=== PATIENT | female | born 1975 | race African-American/Black ===

== ENCOUNTER 2016-11-08 07:20 | Emergency (ER) | payer SELFPAY ==
[2016-11-08 07:37] VITALS: BP 155/74
--- NOTE | 2016-11-08 09:03 | RAD ---
Indication: Right knee pain. 4 views of the right knee demonstrates no fracture. There is a joint effusion noted. No other bone or joint abnormality is noted. IMPRESSION: Joint effusion without definite evidence of fracture.
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
== END 2016-11-08 09:11 | disposition home or self-care (01) ==
LOC: ED 07:20
DX: M25.561 Pain in right knee (principal); M25.461 Effusion, right knee; I10 Essential (primary) hypertension; F17.210 Nicotine dependence, cigarettes, uncomplicated
CPT/HCPCS: 99282

== ENCOUNTER 2016-11-22 10:08 | Emergency (ER) | payer MEDICAID ==
[2016-11-22] MEDS ORDERED: HYDROcodone/ACETAMIN 5-325 MG* 1 TAB PO ONE (12:06)
--- NOTE | 2016-11-22 12:15 | ED ---
Throat Pain/Nasal Congestion - HPI Summary HPI Summary: 41 female presents to ED with complaints of dental pain on right lower side that began a few days ago and has seemed to be worsening. Patient states she also now feels a small bump. Admits to cavities and fractured teeth. Thinks it is infected. Has been taking ibuprofen, tylenol and ambicil without relief. Last dose of tylenol was this morning around 6am. Denies any obvious swelling, discharge, redness, fever/chills or difficulty swallowing/breathing. No other complaints. No PMHx. States it is causing her to get a headache. - History of Current Complaint Chief Complaint: EDDentalPain Time Seen by Provider: 11/22/16 10:32 Hx Obtained From: Patient Onset/Duration: Sudden Onset, Lasting Days, Still Present, Worse Since Severity: Moderate Cough: None - Allergies/Home Medications Allergies/Adverse Reactions: Allergies Allergy/AdvReac Type Severity Reaction Status Date / Time No Known Allergies Allergy Verified 07/14/13 06:57 PMH/Surg Hx/FS Hx/Imm Hx Endocrine/Hematology History: Denies: Hx Diabetes Cardiovascular History: Reports: Hx Hypertension Denies: Hx Congestive Heart Failure Respiratory History: Denies: Hx Asthma History: Denies: Hx Renal Disease Neurological History: Denies: Other Neuro Impairments/Disorders - Immunization History Date of Tetanus Vaccine: unnknown Date of Influenza Vaccine: none Infectious Disease History: Yes Infectious Disease History: Denies: Traveled Outside the [place] in Last 30 Days - Family History Known Family History: Positive: None Negative: Cardiac Disease, Diabetes - Social History Alcohol Use: Occasionally Hx Substance Use: No Substance Use Type: Reports: None Hx Tobacco Use: No Smoking Status (MU): Light Every Day Tobacco Smoker Review of Systems Constitutional: Negative Positive: Dental Pain Cardiovascular: Negative Respiratory: Negative Positive: Headache All Other Systems Reviewed And Are Negative: Yes Physical Exam Triage Information Reviewed: Yes Vital Signs On Initial Exam: Initial Vitals Temp Pulse Resp BP Pulse Ox 96.9 F 88 16 177/100 99 11/22/16 10:10 11/22/16 10:10 11/22/16 10:10 11/22/16 10:10 11/22/16 10:10 Vital Signs Reviewed: Yes Appearance: Positive: Well-Appearing, No Pain Distress, Well-Nourished Skin: Positive: Warm, Skin Color Reflects Adequate Perfusion, Dry. Negative: Cold, Cyanosis @, Jaundiced, Pale, Erythema @ Head/Face: Positive: Normal Head/Face Inspection Eyes: Positive: Conjunctiva Clear ENT: Positive: Hearing grossly normal, Pharynx normal, TMs normal, Other - airway patent, uvula midline, no concern for peritonsillar abscess. Negative: Pharyngeal erythema, Nasal congestion, Nasal drainage, Tonsillar swelling, Tonsillar exudate, Trismus, Muffled/hoarse voice Dental: Positive: Gross Decay/Caries @, Dental Fracture @, Abscess @ - small blueberry sized nodule felt lower right mandible/jaw line., Other - no ludwigs angina. Negative: Cervical Lymphadenopathy, Bleeding - no discharg Neck: Positive: Supple, Nontender, No Lymphadenopathy Respiratory/Lung Sounds: Positive: Clear to Auscultation, Breath Sounds Present. Negative: Rales, Rhonchi, Wheezes Cardiovascular: Positive: Normal, RRR, Pulses are Symmetrical in both Upper and Lower Extremities. Negative: Murmur, Rub Musculoskeletal: Positive: Normal, Strength/ROM Intact Neurological: Positive: Normal, Sensory/Motor Intact, Alert, Oriented to Person Place, Time Psychiatric: Positive: Affect/Mood Appropriate Diagnostics - Vital Signs Vital Signs Temp Pulse Resp BP Pulse Ox 11/22/16 10:10 96.9 F 88 16 177/100 99 - Laboratory Lab Statement: Any lab studies that have been ordered have been reviewed, and results considered in the medical decision making process. EENT Course/Dx - Course Course Of Treatment: appears to be suffering from dental infection/abscess. given pain management while in ED. normal vitals. patent airway and normal PE findings. no concern for other emergent etiology at this time. small beginning of abscess possible however not drainable at this time. Follow up with dentist, given list. aware of worsening signs and symptoms to watch out for. antibiotics and pain management along with ambicil OR ibuprofen. ice, oragel and increase fluids. Istop Reference #: [id number] - Differential Diagnoses Differential Diagnoses: Dental Abscess, Dental Caries, Fractured Tooth, Pharyngitis - Diagnoses Provider Diagnoses: Dental abscess, Pain, dental Discharge - Discharge Plan Condition: Stable Disposition: HOME Prescriptions: Amoxicillin PO (*) [Amoxicillin 500 MG CAP*] 500 mg PO Q12H #20 cap HYDROcodone/ACETAMIN 5-325 MG* [Thayer 5-325 TAB*] 1 tab PO Q6H PRN #10 tab MDD 3 PRN Reason: Pain Patient Education Materials: Dental Abscess (ED), Toothache (ED) Referrals: No Primary Care Phys,NOPCP [Primary Care Provider] - [facility] [place] [facility]IAN REFERRAL [Outside] Additional Instructions: Take prescribed medication as directed. Do not miss a dose. Take entire dose until finished. Take ibuprofen 600mg every 6-8 hours, with food for pain as needed. Apply oral gel to provide relief and numbness. Drink plenty of fluids. Start with liquid foods (broth, yogurt, smoothies). Please make an appointment and follow up with dentist. If symptoms worsen or do not improve please seek medical attention, as discussed.
[2016-11-22 16:19] VITALS: BP 146/123
== END 2016-11-22 16:17 | disposition home or self-care (01) ==
LOC: ED 10:08
DX: K04.7 Periapical abscess without sinus (principal); K02.9 Dental caries, unspecified; F17.210 Nicotine dependence, cigarettes, uncomplicated; Z86.79 Personal history of other diseases of the circulatory system
CPT/HCPCS: 99281

== ENCOUNTER 2016-12-30 18:26 | Emergency (ER) | payer MEDICAID, OTHER ==
[2016-12-30] MEDS ORDERED: NS 0.9% 1000 ML* 1,000 ML IV ONE (18:29)
[2016-12-30] MEDS ORDERED: Haloperidol INJ IV/IM* 5 MG/ML AMP IM ONE (18:30)
[2016-12-30] MEDS ORDERED: diPHENhydraMINE IV* 50 MG/ML 1 ml VIAL (BENADRYL) ONE (18:30)
[2016-12-30] MEDS ORDERED: Haloperidol INJ IV/IM* 5 MG/ML AMP ONE (18:30)
[2016-12-30] MEDS ORDERED: LORazepam INJ* 2 MG/ML 1 ML VIAL ONE (18:30)
[2016-12-30] MEDS ORDERED: LORazepam INJ* 2 MG/ML 1 ML VIAL IM ONE (18:31)
[2016-12-30] MEDS ORDERED: diPHENhydraMINE IV* 50 MG/ML 1 ml VIAL (BENADRYL) IM ONE (18:32)
[2016-12-30 18:36] VITALS: BP 00/00
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
[2016-12-30 20:39] LABS: Hematocrit 41 % (35-47); Hemoglobin 13.6 g/dl (12.0-16.0); Mean Corpuscular HGB Conc 33 g/dl (31-36); Mean Corpuscular Hemoglobin 31 pg (27-31); Mean Corpuscular Volume 94 fL (80-97); Mean Platelet Volume 7 um3 (7.4-10.4); Red Blood Count 4.35 10^6/ul (4.0-5.4); Red Cell Distribution Width 13 % (10.5-15); White Blood Count 6.2 10^3/ul (3.5-10.8)
[2016-12-30 21:01] LABS: ALT 12 U/L (7-52); AST 15 U/L (13-39); Albumin 4.2 g/dL (3.2-5.2); Alkaline Phosphatase 54 U/L (34-104); Anion Gap 9 mmol/L (2-11); BUN/Creatinine Ratio 21.7 (8-20); Blood Urea Nitrogen 13 mg/dL (6-24); CO2 Carbon Dioxide 22 mmol/L (22-32); Calcium 8.9 mg/dL (8.6-10.3); Chloride 108 mmol/L (101-111); Creatine Kinase 226 U/L (10-223); EGFR African American 142.4 (>60); EGFR Non-African American 110.7 (>60); Globulin 2.8 g/dL (2-4); Glucose 96 mg/dL (70-100); Potassium 3.1 mmol/L (3.5-5.0); Sodium 139 mmol/L (133-145)
[2016-12-30 21:45] LABS: Acetaminophen < 15 mcg/mL; Alcohol 303 mg/dL (<10); Salicylate < 2.50 mg/dL (<30)
[2016-12-30 21:53] LABS: TSH (Thyroid Stimulating Horm) 1.05 mcIU/mL (0.34-5.60)
[2016-12-31] MEDS ORDERED: diPHENhydraMINE IV* 50 MG/ML 1 ml VIAL (BENADRYL) IM ONE (03:09)
[2016-12-31] MEDS ORDERED: Haloperidol INJ IV/IM* 5 MG/ML AMP IM ONE (03:09)
[2016-12-31] MEDS ORDERED: LORazepam INJ* 2 MG/ML 1 ML VIAL IM ONE (03:09)
--- NOTE | 2016-12-31 03:18 | ED ---
Course/Dx - Course Course Of Treatment: PATIENT AWOKE IN ED, ANGRY, DEMANDING TO LEAVE. SHE DENIES SI/HI OR NEED FOR MHE. DISCHARGED FROM THE ED DX ACUTE ALCOHOL INTOXICATION. - Diagnoses Provider Diagnoses: Acute alcohol intoxication
== END 2016-12-31 03:33 | disposition home or self-care (01) ==
LOC: ED 18:26
DX: F10.121 Alcohol abuse with intoxication delirium (principal); R45.4 Irritability and anger
CPT/HCPCS: 36415; 80053; 80320; 80329; 82550; 84443; 84702; 85025; 96372; 99285; G0480; J1200; J1630; J2060

== ENCOUNTER 2017-01-11 08:04 | Emergency (ER) | payer MEDICAID, OTHER ==
[2017-01-11 08:11] VITALS: BP 183/111
--- NOTE | 2017-01-11 09:00 | RAD ---
INDICATION: Left foot injury. TECHNIQUE: 3 views of the left foot were obtained. FINDINGS: The bones are in normal alignment. No fracture is seen. Surgical screws are noted in the distal fibula. Joint spaces appear maintained. IMPRESSION: NO EVIDENCE FOR FRACTURE.
--- NOTE | 2017-01-11 09:02 | RAD ---
INDICATION: Left ankle injury. TECHNIQUE: 3 views of the left ankle were obtained. FINDINGS: There is soft tissue swelling present along the anterolateral aspect of the ankle. There are 2 surgical screws in the distal fibula. No acute fracture is seen. 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 Note is made of calcaneal spurs. IMPRESSION: SOFT TISSUE SWELLING, NO FRACTURE IS SEEN.
[2017-01-11] MEDS ORDERED: Ibuprofen TAB* 400 MG PO ONE (09:12)
--- NOTE | 2017-01-12 14:59 | ED ---
Uriah Stout Nilda, scribed for Dinesh Wright MD on 01/11/17 at 0831 . Lower Extremity - HPI Summary HPI Summary: This patient is a 41 year old F presenting to [facility] with a chief complaint of constant left ankle pain and swelling s/p twisting her ankle while walking to the bus this morning. Pt states that a long time ago she broke this ankle and has hardware. The patient rates the pain 10/10 in severity. Symptoms aggravated by weight bearing, movement, and palpation. Symptoms alleviated by rest. Patient states she cannot bear weight not this ankle. - History of Current Complaint Chief Complaint: EDExtremityLower Stated Complaint: LEFT ANKLE PAIN Time Seen by Provider: 01/11/17 08:20 Hx Obtained From: Patient Mechanism Of Injury: Twisted Onset of Pain: Immediate Onset/Duration: Still Present Severity Initially: Severe Severity Currently: Severe Pain Intensity: 10 Pain Scale Used: 0-10 Numeric Timing: Constant Location: Is Discrete @ - left ankle Associated Signs And Symptoms: Positive: Swelling Aggravating Factor(s): Movement, Weight Bearing, Other - palpation Alleviating Factor(s): Rest - Allergies/Home Medications Allergies/Adverse Reactions: Allergies Allergy/AdvReac Type Severity Reaction Status Date / Time No Known Allergies Allergy Verified 01/11/17 08:06 PMH/Surg Hx/FS Hx/Imm Hx Endocrine/Hematology History: Denies: Hx Diabetes Cardiovascular History: Reports: Hx Hypertension Denies: Hx Congestive Heart Failure Respiratory History: Denies: Hx Asthma History: Denies: Hx Renal Disease Neurological History: Denies: Other Neuro Impairments/Disorders - Immunization History Date of Tetanus Vaccine: unnknown Date of Influenza Vaccine: NO Infectious Disease History: No Infectious Disease History: Denies: Traveled Outside the [place] in Last 30 Days - Family History Known Family History: Negative: Cardiac Disease, Diabetes - Social History Alcohol Use: Occasionally Hx Substance Use: No Substance Use Type: Reports: None Hx Tobacco Use: No Smoking Status (MU): Light Every Day Tobacco Smoker Review of Systems Negative: Shortness Of Breath Positive: Other - left ankle pain and swelling; negative ability to bear weight All Other Systems Reviewed And Are Negative: Yes Physical Exam - Summary Physical Exam Summary: VITAL SIGNS: Reviewed. GENERAL: Patient is a well-developed and nourished female who is lying comfortable in the stretcher. Patient is not in any acute respiratory distress. HEAD AND FACE: No signs of trauma. No ecchymosis, hematomas or skull depressions. No sinus tenderness. EYES: PERRLA, EOMI x 2, No injected conjunctiva, no nystagmus. EARS: Hearing grossly intact. Ear canals and tympanic membranes are within normal limits. MOUTH: Oropharynx within normal limits. NECK: Supple, trachea is midline, no adenopathy, no JVD, no carotid bruit, no c- spine tenderness, neck with full ROM. CHEST: Symmetric, no tenderness at palpation LUNGS: Clear to auscultation bilaterally. No wheezing or crackles. CVS: Regular rate and rhythm, S1 and S2 present, no murmurs or gallops appreciated. ABDOMEN: Soft, non-tender. No signs of distention. No rebound no guarding, and no masses palpated. Bowel sounds are normal. EXTREMITIES: no edema, no cyanosis or clubbing. Left ankle swelling in left lateral malleolus. Good pulse and capillary refill. Decreased ROM secondary to pain. NEURO: Alert and oriented x 3. No acute neurological deficits. Speech is normal and follows commands. SKIN: Dry and warm Triage Information Reviewed: Yes Vital Signs On Initial Exam: Initial Vitals Temp Pulse Resp BP Pulse Ox 96.8 F 92 16 183/111 98 01/11/17 08:06 01/11/17 08:06 01/11/17 08:06 01/11/17 08:06 01/11/17 08:06 Vital Signs Reviewed: Yes - [place] Coma Scale Coma Scale Total: 15 Diagnostics - Vital Signs Vital Signs Temp Pulse Resp BP Pulse Ox 01/11/17 08:06 96.8 F 92 16 183/111 98 - Laboratory Lab Statement: Any lab studies that have been ordered have been reviewed, and results considered in the medical decision making process. - Radiology Left foot xray Radiology Interpretation Completed By: Radiologist - Left foot xray, per radiologist, reveals no evidence for fracture. ED physician has reviewed this radiology report and agrees. Left ankle xray Radiology Interpretation Completed By: Radiologist - Left ankle xray, per radiologist, reveals soft tissue swelling. No fracture is seen. ED physician has reviewed this radiology report and agrees. Re-Evaluation - Re-Evaluation First Eval Re-Evaluation Time: 09:14 Comment: Reviewed imaging results and plan to D/C. Pt understands and is agreeable with this plan. Lower Extremity Course/Dx - Course Assessment/Plan: This patient is a 41 year old F presenting to [facility] with a chief complaint of constant left ankle pain and swelling s/p twisting her ankle while walking to the bus this morning. Pt states that a long time ago she broke this ankle and has hardware. The patient rates the pain 10/10 in severity. Symptoms aggravated by weight bearing, movement, and palpation. Symptoms alleviated by rest. Patient states she cannot bear weight not this ankle. Pending left ankle xray and left foot xray. Left ankle xray, per radiologist, reveals soft tissue swelling. No fracture is seen. Left foot xray, per radiologist, reveals no evidence for fracture. ED physician has reviewed these radiology reports and agrees. Pt is stable and will be D/C with a diagnosis of ankle sprain. Pt understands and is agreeable with this plan. - Diagnoses Provider Diagnoses: Left ankle sprain Discharge - Discharge Plan Condition: Stable Disposition: HOME Prescriptions: Ibuprofen TAB* [Motrin TAB* 600 MG] 600 mg PO Q8H PRN #20 tab PRN Reason: Pain Patient Education Materials: Ankle Sprain (ED) Referrals: [facility] [place]] - 3 Days Additional Instructions: RETURN TO THE EMERGENCY DEPARTMENT FOR CHANGING OR WORSENING SYMPTOMS. The documentation as recorded by the Uriah marks Nilda accurately reflects the service I personally performed and the decisions made by , Dinesh Wright MD.
== END 2017-01-11 09:28 | disposition home or self-care (01) ==
LOC: ED 08:04
DX: S93.402A Sprain of unspecified ligament of left ankle, initial encounter (principal); X50.9XXA Other and unspecified overexertion or strenuous movements or postures, initial encounter; Y93.01 Activity, walking, marching and hiking; Y92.521 Bus station as the place of occurrence of the external cause
CPT/HCPCS: 99282; A9270-GY

== ENCOUNTER 2017-10-04 07:48 | Emergency (ER) | payer OTHER ==
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
[2017-10-04 10:54] VITALS: BP 164/100
== END 2017-10-04 10:52 | disposition home or self-care (01) ==
LOC: ED 07:48
DX: S06.0X0A Concussion without loss of consciousness, initial encounter (principal); S00.83XA Contusion of other part of head, initial encounter; V86.69XA Passenger of other special all-terrain or other off-road motor vehicle injured in nontraffic accident, initial encounter; Y93.I9 Activity, other involving external motion; Y92.9 Unspecified place or not applicable; F17.200 Nicotine dependence, unspecified, uncomplicated
CPT/HCPCS: 70450; 70486; 70490; 99281

== ENCOUNTER 2017-11-11 12:37 | Emergency (ER) | payer OTHER ==
--- NOTE | 2017-11-11 13:51 | ED ---
Throat Pain/Nasal Congestion - HPI Summary HPI Summary: Pt is a 42 y/o female who presents to the ED c/o dental pain. She states shes had the 9/10 pain to her bottom right tooth for several days. Pt now notices some white puss. She tried to get a dentist appointment but they cant get her in until next week. Pt states Ibuprofen and Tylenol do not help her pain. - History of Current Complaint Chief Complaint: EDDentalPain Time Seen by Provider: 11/11/17 13:43 Hx Obtained From: Patient Onset/Duration: Gradual Onset, Lasting Days - 2-3, Still Present Severity: Severe - 9/10 Cough: None Related History: Other (Noted In Comments) - Dental pain - Allergies/Home Medications Allergies/Adverse Reactions: Allergies Allergy/AdvReac Type Severity Reaction Status Date / Time No Known Allergies Allergy Verified 11/11/17 14:00 PMH/Surg Hx/FS Hx/Imm Hx Endocrine/Hematology History: Denies: Hx Anticoagulant Therapy, Hx Blood Disorders, Hx Diabetes Cardiovascular History: Reports: Hx Hypertension Denies: Hx Congestive Heart Failure Respiratory History: Denies: Hx Asthma History: Denies: Hx Renal Disease Neurological History: Denies: Other Neuro Impairments/Disorders Psychiatric History: Reports: Hx Anxiety, Hx Depression, Hx Post Traumatic Stress Disorder - Surgical History Surgery Procedure, Year, and Place: None. - Immunization History Date of Tetanus Vaccine: unnknown Date of Influenza Vaccine: NO Infectious Disease History: No Infectious Disease History: Denies: Traveled Outside the [place] in Last 30 Days - Family History Known Family History: Negative: Cardiac Disease, Diabetes - Social History Alcohol Use: Occasionally Hx Substance Use: No Substance Use Type: Reports: None Hx Tobacco Use: Yes Smoking Status (MU): Current Every Day Smoker Review of Systems Negative: Fever Positive: Dental Pain All Other Systems Reviewed And Are Negative: Yes Physical Exam - Summary Physical Exam Summary: Appearance: Well appearing, no pain distress Skin: warm, dry, reflects adequate perfusion Head/face: normal Eyes: EOMI, [place] ENT: tenderness to 24-25 tooth area Neck: supple, non-tender Respiratory: CTA, breath sounds present Cardiovascular: RRR, pulses symmetrical Abdomen: non-tender, soft Bowel: present Musculoskeletal: normal, strength/ROM intact Neuro: normal, sensory motor intact, A&Ox3 Triage Information Reviewed: Yes Vital Signs On Initial Exam: Initial Vitals Temp Pulse Resp BP Pulse Ox 97.5 F 83 18 123/64 97 11/11/17 12:40 11/11/17 12:40 11/11/17 12:40 11/11/17 12:40 11/11/17 12:40 Vital Signs Reviewed: Yes Diagnostics - Vital Signs Vital Signs Temp Pulse Resp BP Pulse Ox 11/11/17 12:40 97.5 F 83 18 123/64 97 - Laboratory Lab Statement: Any lab studies that have been ordered have been reviewed, and results considered in the medical decision making process. EENT Course/Dx - Course Course Of Treatment: Pt is a 42 y/o female who presents to the ED c/o dental pain. She states shes had the 9/10 pain to her bottom right tooth for several days. Pt now notices some white puss. She tried to get a dentist appointment but they cant get her in until next week. Pt states Ibuprofen and Tylenol do not help her pain. A physical exam revealed tenderness to 24-25 tooth area. Final dx is dental pain. Pt is discharged and is to follow up with her dentist. She is agreeable with this plan. - Diagnoses Provider Diagnoses: Pain, dental Discharge - Sign-Out/Discharge Documenting (check all that apply): Patient Departure - Discharge - Discharge Plan Condition: Stable Disposition: HOME Prescriptions: Clindamycin Cap(NF) [Clindamycin Cap 300 mg Cap(NF)] 300 mg PO Q6H #40 cap Ibuprofen TAB* [Motrin TAB* 600 MG] 600 mg PO Q8H PRN #20 tab MDD 3 PRN Reason: Pain Oxycodone HCl/Acetaminophen [Percocet] 1 tab PO TID #6 tab MDD 3 Patient Education Materials: Toothache (ED) Referrals: [facility] [place]] - 3 Days Additional Instructions: RETURN TO THE ED WITH ANY NEW OR WORSENING SYMPTOMS. - Billing Disposition and Condition Condition: STABLE Disposition: Home - Attestation Statements Document Initiated by Scribe: Yes Documenting Scribe: Em Mena Provider For Whom Scribe is Documenting (Include Credential): Ruba Wang MD Scribe Attestation: Em Stout, scribed for Ruba Wang MD on 11/11/17 at 1422. Scribe Documentation Reviewed: Yes Provider Attestation: The documentation as recorded by the Em marks accurately reflects the service I personally performed and the decisions made by me, Ruba Wang MD
[2017-11-11 14:06] VITALS: BP 125/80
== END 2017-11-11 14:04 | disposition home or self-care (01) ==
LOC: ED 12:37
DX: K08.89 Other specified disorders of teeth and supporting structures (principal); F17.200 Nicotine dependence, unspecified, uncomplicated
CPT/HCPCS: 99282

== ENCOUNTER 2017-12-23 23:37 | Emergency (ER) | payer OTHER ==
[2017-12-24] MEDS ORDERED: Ketorolac INJ* 30 MG/ML 1 ML VIAL IM ONE (00:54)
[2017-12-24] MEDS ORDERED: Penicillin VK TAB* 250 MG PO ONE (00:54)
[2017-12-24] MEDS ORDERED: traMADol TAB* 50 MG PO ONE (00:54)
--- NOTE | 2017-12-24 00:58 | ED ---
Throat Pain/Nasal Congestion - HPI Summary HPI Summary: 42-year-old female presents with dental pain for the past 4 days. Located on her right lower jaw. She denies any fevers. No chest pain or shortness breath. No difficulty swallowing. No swelling or pain around her eyes. Has history of dental infections. Does not currently have a dentist. Has been taking ibuprofen every 6 hours without relief. - History of Current Complaint Chief Complaint: EDDentalPain Time Seen by Provider: 12/24/17 00:20 - Allergies/Home Medications Allergies/Adverse Reactions: Allergies Allergy/AdvReac Type Severity Reaction Status Date / Time No Known Allergies Allergy Verified 11/11/17 14:00 PMH/Surg Hx/FS Hx/Imm Hx Endocrine/Hematology History: Denies: Hx Anticoagulant Therapy, Hx Blood Disorders, Hx Diabetes Cardiovascular History: Reports: Hx Hypertension Denies: Hx Congestive Heart Failure Respiratory History: Denies: Hx Asthma History: Denies: Hx Renal Disease Neurological History: Denies: Other Neuro Impairments/Disorders Psychiatric History: Reports: Hx Anxiety, Hx Depression, Hx Post Traumatic Stress Disorder - Surgical History Surgery Procedure, Year, and Place: None. - Immunization History Date of Tetanus Vaccine: unnknown Date of Influenza Vaccine: NO Infectious Disease History: No Infectious Disease History: Denies: Traveled Outside the [place] in Last 30 Days - Family History Known Family History: Positive: None Negative: Cardiac Disease, Diabetes - Social History Alcohol Use: Occasionally Hx Substance Use: No Substance Use Type: Reports: None Hx Tobacco Use: Yes Smoking Status (MU): Current Every Day Smoker Review of Systems Negative: Fever Positive: Dental Pain Negative: Chest Pain Negative: Shortness Of Breath All Other Systems Reviewed And Are Negative: Yes Physical Exam Triage Information Reviewed: Yes Vital Signs On Initial Exam: Initial Vitals Temp Pulse Resp BP Pulse Ox 97.7 F 89 20 155/87 96 12/23/17 23:39 12/23/17 23:39 12/23/17 23:39 12/23/17 23:39 12/23/17 23:39 Vital Signs Reviewed: Yes Appearance: Positive: Well-Appearing Skin: Positive: Warm, Dry Head/Face: Positive: Normal Head/Face Inspection Eyes: Positive: Normal, EOMI, [place], Conjunctiva Clear ENT: Positive: Normal ENT inspection, Pharynx normal, TMs normal Dental: Positive: Percussion Tenderness @ - 28-30, erythema around teeth, Gross Decay/Caries @ - throughout Neck: Positive: Supple, Nontender, No Lymphadenopathy Respiratory/Lung Sounds: Positive: Clear to Auscultation, Breath Sounds Present Cardiovascular: Positive: Normal, RRR Abdomen Description: Positive: Nontender, Soft Bowel Sounds: Positive: Present Musculoskeletal: Positive: Normal Neurological: Positive: Normal Psychiatric: Positive: Normal Diagnostics - Vital Signs Vital Signs Temp Pulse Resp BP Pulse Ox 12/23/17 23:39 97.7 F 89 20 155/87 96 - Laboratory Lab Statement: Any lab studies that have been ordered have been reviewed, and results considered in the medical decision making process. EENT Course/Dx - Course Course Of Treatment: 42-year-old female presents with dental pain for the past 4 days. Located on her right lower jaw. She denies any fevers. No chest pain or shortness breath. No difficulty swallowing. No swelling or pain around her eyes. Has history of dental infections. Does not currently have a dentist. Has been taking ibuprofen every 6 hours without relief. On exam tenderness over to 28-30. Erythema noted to gum. No abscess noted. Will place on penicillin. will gives short course of a medication until antibiotics work. Told needs follow up with dentist. Patient understands agrees with plan. - Differential Diagnoses Differential Diagnoses: Dental Abscess, Dental Caries, Fractured Tooth - Diagnoses Provider Diagnoses: Dental infection Discharge - Sign-Out/Discharge Documenting (check all that apply): Patient Departure - Discharge Plan Condition: Good Disposition: HOME Prescriptions: Penicillin VK TAB* [Penicillin VK 250 mg Tab*] 500 mg PO QID #27 tab traMADol TAB* [Ultram*] 50 mg PO Q8H PRN #6 tab MDD 3 PRN Reason: Pain Patient Education Materials: Dental Abscess (ED) Referrals: [facility] [place] [facility] [Outside] Additional Instructions: Take antibiotics: 4 times a day for 7 days, first dose given in ED Use ibuprofen every 6 hours and tramadol for break through pain every 8 hours Avoid hard, crunchy food until seen by dentist Follow up with dentist as soon as possible Return to ED if develop fever, shortness of breath, pain with eye movement or swelling around eye Establish care with primary care physician - Billing Disposition and Condition Condition: GOOD Disposition: Home Images - Images Dental: 1 - pain
[2017-12-24 01:15] VITALS: BP 151/98
== END 2017-12-24 01:14 | disposition home or self-care (01) ==
LOC: ED 23:37
DX: K04.7 Periapical abscess without sinus (principal); F17.200 Nicotine dependence, unspecified, uncomplicated
CPT/HCPCS: 96372; 99282; A9270-GY; J1885

== ENCOUNTER 2018-01-28 19:54 | Emergency (ER) | payer SELFPAY ==
[2018-01-28] MEDS ORDERED: LORazepam INJ* 2 MG/ML 1 ML VIAL ONE (19:55)
[2018-01-28] MEDS ORDERED: Haloperidol INJ IV/IM* 5 MG/ML AMP ONE (19:55)
[2018-01-28] MEDS ORDERED: hydrOXYzine IM* 50 MG/ML VIAL ONE (19:58)
--- NOTE | 2018-01-28 20:12 | ED ---
Substance Abuse/Use - HPI Summary HPI Summary: This patient is a 42 year old F brought in by Rony BANEGAS to [facility] with a chief complaint of EtOH intoxication since earlier this evening. The police report that the patient threatened to kill them. Patient also threatened to kill the [facility] staff. Symptoms aggravated by nothing. Symptoms alleviated by nothing. Level 5 caveat due to patients intoxication and lack of cooperation - History Of Current Complaint Stated Complaint: 941 Time Seen by Provider: 01/28/18 20:05 Hx Obtained From: EMS, Other: - [place] [employer] Hx From Patient Unobtainable Due To: Other - Level of intoxication and combativeness Ingestion History: Type/Name Of Drug - EtOH Overdose Characteristics: Oral Timing Of Abuse: Binge Use Severity Initially: Moderate Severity Currently: Moderate Character: Manic, Angry Aggravating Factor(s): Nothing Alleviating Factor(s): Nothing Associated Signs And Symptoms: Hostile Related Hx: Homicidal: Thoughts - Allergies/Home Medications Allergies/Adverse Reactions: Allergies Allergy/AdvReac Type Severity Reaction Status Date / Time No Known Allergies Allergy Verified 11/11/17 14:00 PMH/Surg Hx/FS Hx/Imm Hx Endocrine/Hematology History: Denies: Hx Anticoagulant Therapy, Hx Blood Disorders, Hx Diabetes Cardiovascular History: Reports: Hx Hypertension Denies: Hx Congestive Heart Failure Respiratory History: Denies: Hx Asthma History: Denies: Hx Renal Disease Neurological History: Denies: Other Neuro Impairments/Disorders Psychiatric History: Reports: Hx Anxiety, Hx Depression, Hx Post Traumatic Stress Disorder - Surgical History Surgery Procedure, Year, and Place: None. - Immunization History Date of Tetanus Vaccine: unnknown Date of Influenza Vaccine: NO - Family History Known Family History: Negative: Cardiac Disease, Diabetes - Social History Alcohol Use: Occasionally Hx Substance Use: No Substance Use Type: Reports: None Hx Tobacco Use: Yes Smoking Status (MU): Current Every Day Smoker Review of Systems Psychological: Other - positive HI All Other Systems Reviewed And Are Negative: No - Comments Additional Review of Systems Comments: Level 5 caveat due to patients intoxication and lack of cooperation Physical Exam - Summary Physical Exam Summary: VITAL SIGNS: Reviewed. GENERAL: Patient is a well-developed and nourished FEMALE who is lying comfortable in the stretcher. Patient is not in any acute respiratory distress. Patient was examined post-sedation. Patient is restrained, not fighting anymore. HEAD AND FACE: No signs of trauma. No ecchymosis, hematomas or skull depressions. No sinus tenderness. EYES: PERRLA, EOMI x 2, No injected conjunctiva, no nystagmus. EARS: Hearing grossly intact. Ear canals and tympanic membranes are within normal limits. MOUTH: Oropharynx within normal limits. EtOH on breath NECK: Supple, trachea is midline, no adenopathy, no JVD, no carotid bruit, no c- spine tenderness, neck with full ROM. CHEST: Symmetric, no tenderness at palpation LUNGS: Clear to auscultation bilaterally. No wheezing or crackles. CVS: Regular rate and rhythm, S1 and S2 present, no murmurs or gallops appreciated. ABDOMEN: Soft, non-tender. No signs of distention. No rebound no guarding, and no masses palpated. Bowel sounds are normal. EXTREMITIES: FROM in all major joints, no edema, no cyanosis or clubbing. NEURO: Alert and oriented x 3. No acute neurological deficits. Speech is normal and follows commands. SKIN: Dry and warm Level 5 caveat due to patients intoxication and lack of cooperation Triage Information Reviewed: Yes Vital Signs Reviewed: Yes Diagnostics - Laboratory Result Diagrams: 01/28/18 20:46 01/28/18 20:46 Lab Statement: Any lab studies that have been ordered have been reviewed, and results considered in the medical decision making process. Re-Evaluation - Re-Evaluation first re-eval Re-Evaluation Time: 20:29 Change: Improved Comment: Patient was examined post-sedation. Patient is restained and not fighting anymore. Patient knows her name. Patient has EtOH on her breath and admits to drinking tonight. Course/Dx - Course Course Of Treatment: This patient is a 42 year old F brought in by Rony BANEGAS to [facility] with a chief complaint of EtOH intoxication since earlier this evening. The police report that the patient threatened to kill them. Patient also threatened to kill the [facility] staff. Level 5 caveat due to patients intoxication and lack of cooperation. Test results with no significant abnormalities except for elevated serum alcohol. Patient will be signed out to Dr. Johnson upon provider shift change pending sobriety evaluation and re-evaluation. - Diagnoses Provider Diagnoses: Alcohol intoxication Discharge - Sign-Out/Discharge Documenting (check all that apply): Sign-Out Patient - pending sobriety examination and re-evaluation Signing out patient TO: Nolan Johnson - Discharge Plan Condition: Stable Patient Education Materials: Abuse of Alcohol (ED) Referrals: [facility] [Outside] - 2 Days Additional Instructions: Follow up with primary care physician. Return to the emergency department with any new or worsening symptoms. - Attestation Statements Document Initiated by Scribe: Yes Documenting Scribe: Rita Reyes Provider For Whom Scribe is Documenting (Include Credential): Jonathan Edwards MD Scribe Attestation: Rita Stout, scribed for Jonathan Edwards MD on 01/29/18 at 0614. Status of Scribe Document: Ready
[2018-01-28 20:52] LABS: ABS Basophils 0 10^3/ul (0-0.2); ABS Eosinophils 0 10^3/ul (0-0.6); ABS Monocytes 0.6 10^3/ul (0-0.8); ABS Neutrophils 5.8 10^3/ul (1.5-7.7); ABS Nucleated RBC 0 10^3/ul; Eosinophil % 0.4 %; Hematocrit 45 % (35-47); Hemoglobin 15.4 g/dl (12.0-16.0); Lymphocyte % 31.4 %; Mean Corpuscular HGB Conc 34 g/dl (31-36); Mean Corpuscular Hemoglobin 33 pg (27-31); Mean Corpuscular Volume 96 fL (80-97); Mean Platelet Volume 7.2 fL (7.4-10.4); Nucleated Red Blood Cells % 0.1; Platelet Count 311 10^3/ul (150-450); Red Blood Count 4.64 10^6/ul (4.00-5.40); Red Cell Distribution Width 13 % (10.5-15); White Blood Count 9.5 10^3/ul (3.5-10.8)
[2018-01-28 21:09] LABS: EGFR Non-African American 98.7 (>60)
[2018-01-29 06:28] VITALS: BP 113/80
--- NOTE | 2018-01-29 07:27 | ED ---
Progress - Progress Note Progress Note: Receiving sign out from Dr. Edwards, pending sobriety and disposition. Pt's final dx are alcohol intoxication and substance induced mood disorder and she will be discharged home. Course/Dx - Course Course Of Treatment: Nurses note reviewed. Patient sobered in the ER and was cleared for health evaluation medically. Mental health evaluation was completed and they elected for discharge and outpatient referral. - Diagnoses Provider Diagnoses: Substance induced mood disorder, Alcohol intoxication - Provider Notifications Discussed Care Of Patient With: Star Negrete Time Discussed With Above Provider: 09:25 Instructed by Provider To: Other - Pt is now sober and retracted her prior statements. She is stable for discharge. Discharge - Sign-Out/Discharge Documenting (check all that apply): Patient Departure - Discharge, Receiving Sign-Out Receiving patient FROM: Jonathan Edwards - Discharge Plan Condition: Improved Disposition: HOME Patient Education Materials: Abuse of Alcohol (ED) Referrals: [facility] [Outside] - 2 Days Additional Instructions: Follow up with primary care physician. Return to the emergency department with any new or worsening symptoms. - Billing Disposition and Condition Condition: IMPROVED Disposition: Home - Attestation Statements Document Initiated by Scribe: Yes Documenting Scribe: Em Mena Provider For Whom Scribe is Documenting (Include Credential): Nolan Johnson MD Scribe Attestation: Em Stout scribed for Nolan Johnson MD on 01/29/18 at 0952. Scribe Documentation Reviewed: Yes Provider Attestation: The documentation as recorded by the Em marks accurately reflects the service I personally performed and the decisions made by Nolan chairez MD Status of Scribe Document: Viewed
== END 2018-01-29 10:57 | disposition home or self-care (01) ==
LOC: ED 19:54
DX: F19.94 Other psychoactive substance use, unspecified with psychoactive substance-induced mood disorder (principal); F10.129 Alcohol abuse with intoxication, unspecified; F17.200 Nicotine dependence, unspecified, uncomplicated
CPT/HCPCS: 36415; 80053; 80320; 80329; 82550; 84443; 84702; 85025; 99285; G0480; J1630; J2060; J3410

== ENCOUNTER 2018-05-20 15:10 | Emergency (ER) | payer OTHER ==
--- NOTE | 2018-05-20 15:23 | ED ---
Psychiatric Complaint - HPI Summary HPI Summary: LEVEL 5 CAVEAT: HPI LIMITED DUE TO PATIENT CONDITION, UNCOOPERATIVE A 43 y/o F brought in by EMS and police and presents to ED for MHE. Per police: Police found Pt was found on [address], her family was coaxing her back into the car, but she refused and became agitated. Upon arrival, pt is screaming, yelling obscenities, frothing at the mouth, drooling, spitting. Unable to approach due to danger to staff. - History Of Current Complaint Time Seen by Provider: 05/20/18 15:19 Hx Obtained From: Other: - police Onset/Duration: Still Present Timing: Constant Severity Currently: Severe Character: Angry Aggravating Factor(s): Recent Stress - Allergies/Home Medications Allergies/Adverse Reactions: Allergies Allergy/AdvReac Type Severity Reaction Status Date / Time No Known Allergies Allergy Verified 04/17/18 13:52 Home Medications: Home Medications Unobtainable 05/20/18 [History Confirmed 05/20/18] PMH/Surg Hx/FS Hx/Imm Hx Previously Healthy: No Endocrine/Hematology History: Denies: Hx Anticoagulant Therapy, Hx Blood Disorders, Hx Diabetes Cardiovascular History: Reports: Hx Hypertension Denies: Hx Congestive Heart Failure Respiratory History: Denies: Hx Asthma History: Denies: Hx Renal Disease Neurological History: Denies: Other Neuro Impairments/Disorders Psychiatric History: Reports: Hx Anxiety, Hx Depression, Hx Post Traumatic Stress Disorder - Surgical History Surgery Procedure, Year, and Place: None. - Immunization History Date of Tetanus Vaccine: unnknown Date of Influenza Vaccine: NO Infectious Disease History: Denies: Traveled Outside the [place] in Last 30 Days - Family History Known Family History: Positive: None Negative: Cardiac Disease, Diabetes - Social History Occupation: Employed Full-time Lives: Alone Alcohol Use: Occasionally Alcohol Amount: pt appears intoxicated Substance Use Comment - Amount & Last Used: unable to obtain Hx Tobacco Use: Yes Smoking Status (MU): Current Every Day Smoker Review of Systems - ROS Summary Review of Systems Summary: LEVEL 5 CAVEAT: ROS LIMITED DUE TO PATIENT CONDITION, UNCOOPERATIVE Psychological: Other - pos: agitated, screaming, frothing at mouth, spitting All Other Systems Reviewed And Are Negative: No Physical Exam - Summary Physical Exam Summary: Appearance: Smells heavily of ETOH. Skin: warm, dry, reflects adequate perfusion. Erythema around bilat wrists. Head/face: normal Eyes: EOMI, Conjuctiva injected bilaterally. Nystagmus after Ketamine. Pupils mid range. ENT: mucous membranes moist Neck: supple, non-tender Respiratory: CTA, breath sounds present Cardiovascular: Tachy but regular, pulses symmetrical Abdomen: non-tender, soft Bowel Sounds: present Musculoskeletal: normal, strength/ROM intact. No evidence of injury to LE. Neuro: normal, sensory motor intact, A&Ox3 Psych: agitated, screaming obscenities, spitting Genitalia: normal Triage Information Reviewed: Yes Vital Signs Reviewed: Yes Diagnostics - Laboratory Result Diagrams: 05/20/18 15:55 05/20/18 15:55 Lab Statement: Any lab studies that have been ordered have been reviewed, and results considered in the medical decision making process. - EKG 1557 Cardiac Rate: NL - 91 bp EKG Rhythm: Sinus Rhythm ST Segment: Non-Specific Summary of EKG Findings: 1st degree AV block, nml axis, poor R wave progression , non-specific ST. Re-Evaluation - Re-Evaluation 1 Re-Evaluation Time: 20:35 Change: Unchanged Comment: Pt is awake and responsive at bedside. She admits to having some stress recently. She was with her daughter earlier today. She was in a car drinking vodka with an older friend. She does not want a MHE, she wants to go home. Denies SI, HI. Course/Dx - Course Course Of Treatment: Nurse's notes reviewed. The patient was extremely uncooperative, spitting and yelling obscenities on arrival. She smells heavily of alcohol. She required ketamine sedation and then began to wake up belligerent again. She was medicated then with Geodon and Ativan. She sobered over several hours and was up and moving about the ER. She demonstrates functional capacity as evidenced by clear speech and steady gait. She states she is due to go to work in the morning. Today is her birthday and she was celebrating and drinking the vodka. She denies any mental health issue at present. - Differential Dx/Clinical Impression Differential Diagnosis/HQI/PQRI: Positive: Acute Psychosis, Alcohol Intoxication , Bipolar Disorder, Depression, Suicidal Gesture Provider Diagnosis: Conduct disturbance, Alcohol intoxication - Critical Care Time Critical Care Time: 30-74 min - CCT is EXCLUSIVE of separately billable procedures. Discharge - Sign-Out/Discharge Documenting (check all that apply): Patient Departure - DC Patient Received Moderate/Deep Sedation with Procedure: No - Discharge Plan Condition: Improved Disposition: HOME Patient Education Materials: Alcohol Intoxication (ED), Abuse of Alcohol (ED) Forms: *Work Release Referrals: [facility] [Outside] [facility] [Outside] Additional Instructions: Do not drink, especially never drink to excess. Do not drive today. Do not use marijuana or other drugs. Call first in the morning to have primary care doctor recheck your blood pressure. Return if worse, mental health concerns, new symptoms or other concerns. Handouts regarding local resources for alcohol have been given to you. - Billing Disposition and Condition Condition: IMPROVED Disposition: Home - Attestation Statements Document Initiated by Jamaalibe: Yes Documenting Scribe: Fredy Drew Provider For Whom Scribe is Documenting (Include Credential): Dr. Nolan Johnson MD Scribe Attestation: IFredy scribed for Dr. Nolan Johnson MD on 05/20/18 at 2143. Scribe Documentation Reviewed: Yes Provider Attestation: The documentation as recorded by the Fredy marks accurately reflects the service I personally performed and the decisions made by , Dr. Nolan Johnson MD Status of Scribe Document: Viewed
[2018-05-20] MEDS ORDERED: Nicotine Inhaler* 10 MG AMP INH PRN (15:26)
[2018-05-20] MEDS ORDERED: KETAMINE HCL* 50 MG/ML 10 ML VIAL IM ONE (15:27)
[2018-05-20] MEDS ORDERED: LORazepam INJ* 2 MG/ML 1 ML VIAL IM ONE (15:50)
[2018-05-20] MEDS ORDERED: Ziprasidone IM INJ* 20 MG/ML VIAL IM ONE (15:50)
[2018-05-20] MEDS ORDERED: Sterile Water for Inj* 10 ML ONE (15:56)
[2018-05-20] MEDS ORDERED: Mouth Piece, Nicotine* 1 EACH CARTRIDGE INH ONE (16:00)
[2018-05-20 16:08] LABS: ABS Basophils 0.1 10^3/ul (0-0.2); ABS Eosinophils 0 10^3/ul (0-0.6); ABS Lymphocytes 2.5 10^3/ul (1.0-4.8); ABS Monocytes 0.9 10^3/ul (0-0.8); ABS Neutrophils 7.1 10^3/ul (1.5-7.7); ABS Nucleated RBC 0 10^3/ul; Eosinophil % 0.4 %; Hematocrit 44 % (33-41); Hemoglobin 14.8 g/dL (12.0-16.0); Lymphocyte % 23.4 %; Mean Corpuscular HGB Conc 34 g/dL (31-36); Mean Corpuscular Hemoglobin 32 pg (27-31); Mean Corpuscular Volume 95 fL (80-97); Mean Platelet Volume 7.5 fL (7.4-10.4); Nucleated Red Blood Cells % 0.1; Platelet Count 276 10^3/uL (150-450); Red Blood Count 4.61 10^6 /uL (3.70-4.87); Red Cell Distribution Width 13 % (10.5-15); White Blood Count 10.6 10^3/uL (3.5-10.8)
[2018-05-20 16:20] LABS: Urine Appearance Clear; Urine Bacteria Absent (Absent); Urine Bilirubin Negative (Negative); Urine Blood Negative (Negative); Urine Color Yellow; Urine Glucose Negative (Negative); Urine Ketones 1+ (Negative); Urine Nitrite Negative (Negative); Urine Protein 1+(30 mg/dL) (Negative); Urine Red Blood Cell Trace(0-2/hpf) (Absent); Urine Specific Gravity 1.013 (1.010-1.030); Urine Squamous Epithelial Cell Present (Absent); Urine Urobilinogen Negative (Negative); Urine White Blood Cell Trace(0-5/hpf) (Absent)
[2018-05-20 16:25] LABS: ALT 14 U/L (7-52); AST 19 U/L (13-39); Albumin 4.6 g/dL (3.2-5.2); Albumin/Globulin Ratio 1.5 (1-3); Alkaline Phosphatase 55 U/L (34-104); Anion Gap 16 mmol/L (2-11); BUN/Creatinine Ratio 17.6 (8-20); Blood Urea Nitrogen 12 mg/dL (6-24); CO2 Carbon Dioxide 17 mmol/L (22-32); Calcium 9.4 mg/dL (8.6-10.3); Chloride 104 mmol/L (101-111); EGFR African American 114.8 (>60); EGFR Non-African American 94.9 (>60); Globulin 3.1 g/dL (2-4); Glucose 91 mg/dL (70-100); Potassium 3.3 mmol/L (3.5-5.0); Sodium 137 mmol/L (135-145); Total Protein 7.7 g/dL (6.4-8.9)
[2018-05-20 16:29] LABS: Acetaminophen < 15 mcg/mL; Alcohol 260 mg/dL (<10); Salicylate < 2.50 mg/dL (<30)
[2018-05-20 16:43] LABS: TSH (Thyroid Stimulating Horm) 0.38 mcIU/mL (0.34-5.60)
[2018-05-20 16:48] LABS: Barbiturates Urine Screen None Detected (None Detect); Benzodiazepine Urine Screen None Detected (None Detect); Urine Cannabinoids Screen Presumptive Positive (None Detect)
[2018-05-20 21:22] VITALS: BP 0/0
== END 2018-05-20 21:15 | disposition home or self-care (01) ==
LOC: ED 15:10
DX: F91.9 Conduct disorder, unspecified (principal); F10.129 Alcohol abuse with intoxication, unspecified; I10 Essential (primary) hypertension
CPT/HCPCS: 36415; 80053; 80307; 80320; 80329; 81003; 81015; 84443; 85025; 87086; 93005; 96372; 99285; G0480; J2060; J3486

== ENCOUNTER 2018-06-01 20:09 | Emergency (ER) | payer OTHER ==
--- NOTE | 2018-06-01 21:51 | ED ---
Throat Pain/Nasal Congestion - HPI Summary HPI Summary: 43-year-old female presents with contusion to right eye since . She states that she kicked in the eye. She denies any pain with eye movement. She states that she did have a bloody nose. She states she has increased pain under her right eye. She denies any double vision. She states occasionally blurry vision. She wears glasses. she is not on blood thinners. she denies any loss consciousness. No headache. No nausea vomiting. - History of Current Complaint Chief Complaint: EDEyeProblem Time Seen by Provider: 06/01/18 21:49 - Allergies/Home Medications Allergies/Adverse Reactions: Allergies Allergy/AdvReac Type Severity Reaction Status Date / Time No Known Allergies Allergy Verified 04/17/18 13:52 PMH/Surg Hx/FS Hx/Imm Hx Endocrine/Hematology History: Denies: Hx Anticoagulant Therapy, Hx Blood Disorders, Hx Diabetes Cardiovascular History: Reports: Hx Hypertension Denies: Hx Congestive Heart Failure Respiratory History: Denies: Hx Asthma History: Denies: Hx Renal Disease Neurological History: Denies: Other Neuro Impairments/Disorders Psychiatric History: Reports: Hx Anxiety, Hx Depression, Hx Post Traumatic Stress Disorder - Surgical History Surgery Procedure, Year, and Place: None. - Immunization History Date of Tetanus Vaccine: unnknown Date of Influenza Vaccine: NO Infectious Disease History: No Infectious Disease History: Denies: Traveled Outside the [place] in Last 30 Days - Family History Known Family History: Positive: None Negative: Cardiac Disease, Diabetes - Social History Alcohol Use: Occasionally Alcohol Amount: pt appears intoxicated Hx Substance Use: No Substance Use Type: Reports: Other Substance Use Comment - Amount & Last Used: unable to obtain Hx Tobacco Use: Yes Smoking Status (MU): Current Every Day Smoker Review of Systems Negative: Fever Positive: Blurred Vision, Other - black eye right Negative: Chest Pain Negative: Shortness Of Breath All Other Systems Reviewed And Are Negative: Yes Physical Exam Triage Information Reviewed: Yes Vital Signs On Initial Exam: Initial Vitals Temp Pulse Resp BP Pulse Ox 98.6 F 89 20 191/112 100 06/01/18 20:59 06/01/18 20:59 06/01/18 20:59 06/01/18 20:59 06/01/18 20:59 Vital Signs Reviewed: Yes Appearance: Positive: Well-Appearing Skin: Positive: Warm, Dry Head/Face: Positive: Normal Head/Face Inspection, Other - ecchymosis around right eye Eyes: Positive: EOMI, [place], Other: - subconjctival hemorrhage to right eye ENT: Positive: Normal ENT inspection, Pharynx normal, TMs normal Neck: Positive: Other: - tenderness neck Respiratory/Lung Sounds: Positive: Clear to Auscultation, Breath Sounds Present Cardiovascular: Positive: Normal, RRR Musculoskeletal: Positive: Normal Neurological: Positive: Sensory/Motor Intact, Alert, Oriented to Person Place, Time, CN Intact II-III Psychiatric: Positive: Normal Diagnostics - Vital Signs Vital Signs Temp Pulse Resp BP Pulse Ox 06/01/18 20:59 98.6 F 89 20 191/112 100 - Laboratory Lab Statement: Any lab studies that have been ordered have been reviewed, and results considered in the medical decision making process. - CT maxillary facial CT Interpretation Completed By: Radiologist Summary of CT Findings: IMPRESSION: 1. There is mild right periorbital contusion. 2. New since the prior exam is acute minimally displaced fracture of the floor. of the right orbit. EENT Course/Dx - Course Course Of Treatment: 43-year-old female presents with contusion to right eye since . She states that she kicked in the eye. She denies any pain with eye movement. She states that she did have a bloody nose. She states she has increased pain under her right eye. She denies any double vision. She states occasionally blurry vision. She wears glasses. she is not on blood thinners. she denies any loss consciousness. No headache. No nausea vomiting. On exam extra occular movements intact. Has subconjunctival hemorrhage present on the right eye. Normal visual acuity. Tenderness over the lower orbital area on the right. CT shows orbital fracture. We'll place on Augmentin and gave pain medication. Told needs optho follow up this week. Patient understands agrees plan. - Differential Diagnoses Differential Diagnoses: Contusion, Corneal Abrasion, Fracture - Diagnoses Provider Diagnoses: Orbital fracture, Facial contusion, Subconjunctival hemorrhage, traumatic Discharge - Sign-Out/Discharge Documenting (check all that apply): Patient Departure Patient Received Moderate/Deep Sedation with Procedure: No - Discharge Plan Condition: Good Disposition: HOME Prescriptions: Amoxicillin/Clavulanate TAB* [Augmentin TAB 875*] 875 mg PO BID #9 tab HYDROcodone/ACETAMIN 5-325 MG* [[place] 5-325 TAB*] 1 tab PO Q6H PRN #12 tab MDD 4 PRN Reason: Pain Patient Education Materials: Facial Fracture (ED) Referrals: No Primary Care Phys,NOPCP [Primary Care Provider] - Reilly Morales MD [Medical Doctor] - Additional Instructions: Follow up with optho this week Take augmentin twice a day for [address] ice on the area Take tyenlol or ibuprofen for pain every 6 hours, use norco every 6 hours as needed for break through pain use saline in eyes Return to ED if develop any new or worsening symptoms - Billing Disposition and Condition Condition: GOOD Disposition: Home
[2018-06-01] MEDS ORDERED: Amoxicillin/Clavulanate TAB* 875 MG PO ONE (22:57)
[2018-06-01] MEDS ORDERED: HYDROcodone/ACETAMIN 5-325 MG* 1 TAB PO ONE (22:57)
[2018-06-01 23:17] VITALS: BP 183/115
== END 2018-06-01 23:14 | disposition home or self-care (01) ==
LOC: ED 20:09
DX: S02.81XA Fracture of other specified skull and facial bones, right side, initial encounter for closed fracture (principal); S00.83XA Contusion of other part of head, initial encounter; H11.31 Conjunctival hemorrhage, right eye; W50.1XXA Accidental kick by another person, initial encounter; Y92.9 Unspecified place or not applicable; I10 Essential (primary) hypertension; F17.210 Nicotine dependence, cigarettes, uncomplicated; H53.8 Other visual disturbances
CPT/HCPCS: 70486; 99282; A9270-GY

== ENCOUNTER 2018-06-19 08:03 | Emergency (ER) | payer OTHER ==
[2018-06-19 09:09] VITALS: BP 162/105
--- NOTE | 2018-06-19 09:17 | ED ---
Throat Pain/Nasal Congestion - HPI Summary HPI Summary: Patient is a 43-year-old female who presents to the ED with right lower jaw pain. She states she needs to teeth pulled to the right lower jaw has been expressing pain for the past week. She states she has had infections in these 2 teeth in the past. Recently had a fracture to the ipsilateral side of the face and didn't know if this was related. She states both lower teeth need to be pulled but she has been unable to see a dentist she has been working too much. She denies any fevers, sweats, chills. She does endorse that bilateral arm rash over the course of the past 2 days which has improved with over-the- counter calamine lotion. She states she has been moving into an apartment recently and may have had a reaction to some of the environment. She denies any dysphagia or odynophagia or shortness of breath. - History of Current Complaint Chief Complaint: EDDentalPain Time Seen by Provider: 06/19/18 08:14 Hx Obtained From: Patient Onset/Duration: Sudden Onset Severity: Moderate Associated Signs And Symptoms: Negative: Dysphagia, FB Sensation, Drooling, Wheezing, Sinus Discomfort Related History: Smoking - Epiglottits Risk Factors Epiglottis Risk Factors: Negative - Allergies/Home Medications Allergies/Adverse Reactions: Allergies Allergy/AdvReac Type Severity Reaction Status Date / Time No Known Allergies Allergy Verified 06/19/18 08:13 Home Medications: Home Medications Ibuprofen TAB* [Motrin TAB* 800 MG] 800 mg PO ONCE 06/19/18 [History Confirmed 06/19/18] PMH/Surg Hx/FS Hx/Imm Hx Previously Healthy: Yes Endocrine/Hematology History: Denies: Hx Anticoagulant Therapy, Hx Blood Disorders, Hx Diabetes Cardiovascular History: Reports: Hx Hypertension Denies: Hx Congestive Heart Failure Respiratory History: Denies: Hx Asthma History: Denies: Hx Renal Disease Sensory History: Reports: Hx Contacts or Glasses Opthamlomology History: Reports: Hx Contacts or Glasses Neurological History: Denies: Other Neuro Impairments/Disorders Psychiatric History: Reports: Hx Anxiety, Hx Depression, Hx Post Traumatic Stress Disorder - Surgical History Surgery Procedure, Year, and Place: None. - Immunization History Date of Tetanus Vaccine: unnknown Date of Influenza Vaccine: NO Hx Pertussis Vaccination: No Immunizations Up to Date: Yes Infectious Disease History: No Infectious Disease History: Denies: Traveled Outside the [place] in Last 30 Days - Family History Known Family History: Positive: None Negative: Cardiac Disease, Diabetes - Social History Occupation: Employed Full-time Lives: With Family Alcohol Use: Occasionally Alcohol Amount: pt appears intoxicated Hx Substance Use: No Substance Use Type: Reports: None Substance Use Comment - Amount & Last Used: unable to obtain Hx Tobacco Use: Yes Smoking Status (MU): Light Every Day Tobacco Smoker Review of Systems Negative: Fever, Chills, Fatigue, Skin Diaphoresis Positive: Dental Pain. Negative: Sore Throat Negative: Palpitations, Chest Pain Genitourinary: Negative Positive: no symptoms reported, see HPI Negative: Arthralgia, Myalgia Positive: Other - hives to the bilateral arms, mild Psychological: Normal All Other Systems Reviewed And Are Negative: Yes Physical Exam Triage Information Reviewed: Yes Vital Signs On Initial Exam: Initial Vitals Temp Pulse Resp BP Pulse Ox 97.9 F 74 20 168/95 98 06/19/18 08:09 06/19/18 08:09 06/19/18 08:09 06/19/18 08:09 06/19/18 08:09 Vital Signs Reviewed: Yes Appearance: Positive: Well-Appearing, Well-Nourished Skin: Positive: Skin Color Reflects Adequate Perfusion, Other - Hives to the bilateral arms Head/Face: Positive: Normal Head/Face Inspection Eyes: Positive: EOMI, [place], Conjunctiva Clear Dental: Positive: Dental Fracture @ - Tooth #29 and #30 Neck: Positive: Supple, No Lymphadenopathy Respiratory/Lung Sounds: Positive: Breath Sounds Present Cardiovascular: Positive: Pulses are Symmetrical in both Upper and Lower Extremities Musculoskeletal: Positive: Strength/ROM Intact Neurological: Positive: Sensory/Motor Intact Psychiatric: Positive: Normal, Affect/Mood Appropriate Diagnostics - Vital Signs Vital Signs Temp Pulse Resp BP Pulse Ox 06/19/18 09:09 98.5 F 67 18 162/105 99 06/19/18 08:09 97.9 F 74 20 168/95 98 - Laboratory Lab Statement: Any lab studies that have been ordered have been reviewed, and results considered in the medical decision making process. EENT Course/Dx - Course Course Of Treatment: Patient is evaluated for right lower jaw pain. She is having pain to #29 and #30. The teeth are brokena and cracked but no erythema or drainage. She states she "popped" an area over one of the teeth last week. She states she has had multiple infections in these teeth and is waiting to get both of them pulled. - Diagnoses Provider Diagnoses: Pain, dental Discharge - Sign-Out/Discharge Documenting (check all that apply): Patient Departure Patient Received Moderate/Deep Sedation with Procedure: No - Discharge Plan Condition: Stable Disposition: HOME Prescriptions: Penicillin VK 500 MG TAB(NF) [Penicillin VK 500 mg Tab(NF)] 500 mg PO TID #21 tab MDD 3 Patient Education Materials: Toothache (ED) Forms: *Work Release Referrals: No Primary Care Phys,NOPCP [Primary Care Provider] - Additional Instructions: Penicillin old three times daily x 7 days Continue with calamine lotion and or hydrocortisone cream 1% over the counter - Billing Disposition and Condition Condition: STABLE Disposition: Home
== END 2018-06-19 09:09 | disposition home or self-care (01) ==
LOC: ED 08:03
DX: K08.89 Other specified disorders of teeth and supporting structures (principal); F17.210 Nicotine dependence, cigarettes, uncomplicated
CPT/HCPCS: 99281

== ENCOUNTER 2018-06-19 23:52 | Emergency (ER) | payer OTHER ==
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
[2018-06-20 01:28] VITALS: BP 0/0
== END 2018-06-20 00:30 | disposition home or self-care (01) ==
LOC: ED 23:52
DX: F10.129 Alcohol abuse with intoxication, unspecified (principal); F32.9 Major depressive disorder, single episode, unspecified; F17.200 Nicotine dependence, unspecified, uncomplicated
CPT/HCPCS: 99283

== ENCOUNTER 2018-08-24 08:33 | Emergency (ER) | payer OTHER ==
--- NOTE | 2018-08-24 08:50 | ED ---
Respiratory - HPI Summary HPI Summary: Patient is a 43 y/o F presenting to ED with complaints of cough, chest congestion, diffuse body aches, sore throat, and fatigue. Sx onset two days ago , 08/22/18. Patient works in the kitchen at [employer]. She notes that there are several residents who are in isolation. Patient states that she had been washing dishes without gloves and is concerned that she may have caught something. Cough is productive of green phlegm and patient notes that she experiences some SOB with her cough. She denies nasal discharge, fever, and ear ache. Patient states that she smokes half a pack of cigarettes daily. Patient has never been on a puffer or inhaler. She states that every summer she gets strep throat. No PMHx of bronchitis, asthma, seasonal allergies. Patient reports that the only medication she takes is ibuprofen. Patient has no PCP, lives in [place]. PMHx of HTN, anxiety, depression, and PTSD. PSHx of ankle surgery, section. Pt does not report any chills, erythema of eyes, CP, abdominal pain, N/V, dysuria, hematuria, edema, rash, or dizziness. On triage, pain is rated 6/10. Nothing is noted to aggravate/alleviate Sx. Home medications and allergies are reviewed. - History of Current Complaint Chief Complaint: EDUpperRespComplaint Stated Complaint: COUGH HIGH BLOOD PRESSURE, Hx Obtained From: Patient Onset/Duration: Lasting Days - 08/22/18, Still Present Timing: Constant Current Severity: Moderate Pain Intensity: 6 Character: Cough (Productive) Sputum Color: Green Aggravating Factor(s): Nothing Alleviating Factor(s): Nothing Associated Signs and Symptoms: SOB - with cough - Allergy/Home Medications Allergies/Adverse Reactions: Allergies Allergy/AdvReac Type Severity Reaction Status Date / Time No Known Allergies Allergy Verified 06/19/18 23:59 PMH/Surg Hx/FS Hx/Imm Hx Endocrine/Hematology History: Denies: Hx Anticoagulant Therapy, Hx Blood Disorders, Hx Diabetes Cardiovascular History: Reports: Hx Hypertension Denies: Hx Congestive Heart Failure Respiratory History: Denies: Hx Asthma, Hx Seasonal Allergies History: Denies: Hx Renal Disease Sensory History: Reports: Hx Contacts or Glasses Opthamlomology History: Reports: Hx Contacts or Glasses Neurological History: Denies: Other Neuro Impairments/Disorders Psychiatric History: Reports: Hx Anxiety, Hx Depression, Hx Post Traumatic Stress Disorder - Surgical History Surgery Procedure, Year, and Place: None. - Immunization History Date of Tetanus Vaccine: unnknown Date of Influenza Vaccine: NO Infectious Disease History: No Infectious Disease History: Denies: Traveled Outside the [place] in Last 30 Days - Family History Known Family History: Negative: Cardiac Disease, Diabetes - Social History Alcohol Use: Occasionally Alcohol Amount: pt appears intoxicated Hx Substance Use: No Substance Use Type: Reports: None Substance Use Comment - Amount & Last Used: unable to obtain Hx Tobacco Use: Yes Smoking Status (MU): Light Every Day Tobacco Smoker Review of Systems Positive: Fatigue. Negative: Fever, Chills Negative: Erythema Positive: Sore Throat. Negative: Ear Ache, Nasal Discharge Negative: Chest Pain Respiratory: Other - positive - chest congestion Positive: Shortness Of Breath - w/ cough , Cough Negative: Abdominal Pain, Vomiting, Nausea Negative: dysuria, hematuria Positive: Myalgia - diffuse body aches . Negative: Edema Negative: Rash Neurological: Other - negative - dizziness All Other Systems Reviewed And Are Negative: Yes Physical Exam - Summary Physical Exam Summary: Constitutional: Well-developed, Well-nourished, Alert. (-) Distressed Skin: Warm, Dry HENT: Normocephalic; Atraumatic Eyes: Conjunctiva normal Neck: Musculoskeletal ROM normal neck. (-) JVD, (-) Stridor, (-) Tracheal deviation Cardio: Rhythm regular, rate normal, Heart sounds normal; Intact distal pulses; The pedal pulses are 2+ and symmetric. Radial pulses are 2+ and symmetric. (-) Murmur Pulmonary/Chest wall: Effort normal. (-) Respiratory distress, (-) Wheezes, (-) Rales Abd: Soft, (-) tenderness, (-) Distension, (-) Guarding, (-) Rebound Musculoskeletal: (-) Edema Lymph: (-) Cervical adenopathy Neuro: Alert, Oriented x3 Psych: Mood and affect Normal Triage Information Reviewed: Yes Vital Signs On Initial Exam: Initial Vitals Temp Pulse Resp BP Pulse Ox 97.2 F 71 18 128/92 96 08/24/18 08:36 08/24/18 08:36 08/24/18 08:36 08/24/18 08:36 08/24/18 08:36 Vital Signs Reviewed: Yes Diagnostics - Vital Signs Vital Signs Temp Pulse Resp BP Pulse Ox 08/24/18 08:36 97.2 F 71 18 128/92 96 - Laboratory Lab Statement: Any lab studies that have been ordered have been reviewed, and results considered in the medical decision making process. Disposition - Course Course Of Treatment: Patient is a 43 y/o F presenting to ED with complaints of cough, chest congestion, diffuse body aches, sore throat, and fatigue. Sx onset two days ago, 08/22/18. Cough is productive of green phlegm and patient notes that she experiences some SOB with her cough. She denies nasal discharge, fever , and ear ache. Patient states that she smokes half a pack of cigarettes daily. She states that every summer she gets strep throat. No PMHx of bronchitis, asthma, seasonal allergies. Physical exam is unremarkable. Patient had a negative group A strep rapid. Patient will be discharged to home with prescription for ibuprofen and follow up with PCP within 1 week. She is agreeable with this plan. - Diagnoses Provider Diagnoses: URI (upper respiratory infection) Discharge - Sign-Out/Discharge Documenting (check all that apply): Patient Departure - discharge Patient Received Moderate/Deep Sedation with Procedure: No - Discharge Plan Condition: Stable Disposition: HOME Prescriptions: Ibuprofen TAB* [Motrin TAB* 600 MG] 600 mg PO Q6H PRN #15 tab PRN Reason: Pain - Moderate To Severe Patient Education Materials: Upper Respiratory Infection (ED) Forms: *Work Release Referrals: [facility] [Outside] - 1 Week Additional Instructions: RETURN TO THE EMERGENCY DEPARTMENT FOR CHANGING OR WORSENING SYMPTOMS. FOLLOW UP WITH [facility] IN ONE WEEK. - Attestation Statements Document Initiated by Scribe: Yes Documenting Scribe: GIOVANNI THOMAS Provider For Whom Scribe is Documenting (Include Credential): ALEKSANDRA DAVIS MD Scribe Attestation: GIOVANNI Stout, scribed for ALEKSANDRA DAVIS MD on 08/24/18 at 0916. Status of Scribe Document: Ready
[2018-08-24 09:06] LABS: Rapid Strep Molecular Negative (Negative)
[2018-08-24 09:25] VITALS: BP 122/67
== END 2018-08-24 09:24 | disposition home or self-care (01) ==
LOC: ED 08:33
DX: J06.9 Acute upper respiratory infection, unspecified (principal); R05 Cough; R09.89 Other specified symptoms and signs involving the circulatory and respiratory systems; J02.9 Acute pharyngitis, unspecified; R53.83 Other fatigue; I10 Essential (primary) hypertension; F17.210 Nicotine dependence, cigarettes, uncomplicated
CPT/HCPCS: 87651; 99282

== ENCOUNTER 2018-09-02 10:41 | Emergency (ER) | payer OTHER ==
--- NOTE | 2018-09-02 12:46 | ED ---
Skin Complaint - HPI Summary HPI Summary: 43 year old female presents with rash for the past month. She states that the rash is very itchy. Started on her legs. She has tried calamine lotion and Benadryl without relief. She denies any new soaps or products. Denies any outdoor exposure. Never had this rash before. Denies any chest pain shortness of breath. She denies any bowel pain nausea vomiting. States rash is very itchy. - History of Current Complaint Chief Complaint: EDRashSkinAbscess Time Seen by Provider: 09/02/18 12:16 Stated Complaint: RASH ON LEGS PER PT Pain Intensity: 0 - Allergy/Home Medications Allergies/Adverse Reactions: Allergies Allergy/AdvReac Type Severity Reaction Status Date / Time No Known Allergies Allergy Verified 09/02/18 10:46 PMH/Surg Hx/FS Hx/Imm Hx Endocrine/Hematology History: Denies: Hx Anticoagulant Therapy, Hx Blood Disorders, Hx Diabetes Cardiovascular History: Reports: Hx Hypertension Denies: Hx Congestive Heart Failure Respiratory History: Denies: Hx Asthma, Hx Seasonal Allergies History: Denies: Hx Renal Disease Sensory History: Reports: Hx Contacts or Glasses Opthamlomology History: Reports: Hx Contacts or Glasses Neurological History: Denies: Other Neuro Impairments/Disorders Psychiatric History: Reports: Hx Anxiety, Hx Depression, Hx Post Traumatic Stress Disorder - Surgical History Surgery Procedure, Year, and Place: None. - Immunization History Date of Tetanus Vaccine: unnknown Date of Influenza Vaccine: NO Infectious Disease History: No Infectious Disease History: Denies: Traveled Outside the [place] in Last 30 Days - Family History Known Family History: Negative: Cardiac Disease, Diabetes - Social History Alcohol Use: Occasionally Alcohol Amount: pt appears intoxicated Hx Substance Use: No Substance Use Type: Reports: None Substance Use Comment - Amount & Last Used: unable to obtain Hx Tobacco Use: Yes Smoking Status (MU): Light Every Day Tobacco Smoker Review of Systems Negative: Fever Negative: Chest Pain Negative: Shortness Of Breath Positive: Rash All Other Systems Reviewed And Are Negative: Yes Physical Exam Triage Information Reviewed: Yes Vital Signs On Initial Exam: Initial Vitals Temp Pulse Resp BP Pulse Ox 97.4 F 87 14 157/101 99 09/02/18 10:44 09/02/18 10:44 09/02/18 10:44 09/02/18 10:44 09/02/18 10:44 Vital Signs Reviewed: Yes Appearance: Positive: Well-Appearing Skin: Positive: Warm, Dry, Other - macular-papular rash on abd and legs Head/Face: Positive: Normal Head/Face Inspection Eyes: Positive: Normal, Conjunctiva Clear ENT: Positive: Pharynx normal Respiratory/Lung Sounds: Positive: Clear to Auscultation, Breath Sounds Present Cardiovascular: Positive: Normal, RRR Musculoskeletal: Positive: Normal Neurological: Positive: Normal Psychiatric: Positive: Normal Diagnostics - Vital Signs Vital Signs Temp Pulse Resp BP Pulse Ox 09/02/18 10:44 97.4 F 87 14 157/101 99 - Laboratory Lab Statement: Any lab studies that have been ordered have been reviewed, and results considered in the medical decision making process. Course/Dx - Course Course Of Treatment: 43 year old female presents with rash for the past month. She states that the rash is very itchy. Started on her legs. She has tried calamine lotion and Benadryl without relief. She denies any new soaps or products. Denies any outdoor exposure. Never had this rash before. Denies any chest pain shortness of breath. She denies any bowel pain nausea vomiting. States rash is very itchy. On exam has macular-papular rash on legs and abdomen. We will treat as potential contact versus eczema type rash with topical corticosteroid. Told to follow-up with primary or derm. patient bp is elevated so will give dose of amlodipine. patient has blood pressure meds at home will start. patient understand and agrees with plan. - Differential Diagnoses - Skin Complaint Differential Diagnoses: Contact Dermatitis, Eczema, Poison Sveta - Diagnoses Provider Diagnoses: Rash, Elevated blood pressure reading Discharge - Sign-Out/Discharge Documenting (check all that apply): Patient Departure Patient Received Moderate/Deep Sedation with Procedure: No - Discharge Plan Condition: Good Disposition: HOME Prescriptions: Triamcinolone 0.1% OINT(NF) [Kenalog 0.1% OINT(NF)] 1 applic .SEE ORDER BID #1 tube Patient Education Materials: Acute Rash (ED) Forms: *Work Release Referrals: [facility] [Outside] Jacob Vasquez MD [Medical Doctor] - Additional Instructions: apply cream to area twice a day take benadryl every 6 hours as needed for itching follow up with primary or derm Return to ED if develop any new or worsening symptoms - Billing Disposition and Condition Condition: GOOD Disposition: Home
[2018-09-02] MEDS ORDERED: amLODIPine TAB* 5 MG PO ONE (13:14)
[2018-09-02 13:20] VITALS: BP 200/112
== END 2018-09-02 13:19 | disposition home or self-care (01) ==
LOC: ED 10:41
DX: R21 Rash and other nonspecific skin eruption (principal); R03.0 Elevated blood-pressure reading, without diagnosis of hypertension; F17.210 Nicotine dependence, cigarettes, uncomplicated
CPT/HCPCS: 99282; A9270-GY

== ENCOUNTER 2018-09-27 10:33 | Emergency (ER) | payer OTHER ==
[2018-09-27 10:43] VITALS: BP 152/93
--- NOTE | 2018-09-27 18:20 | ED ---
Back Pain - HPI Summary HPI Summary: Pt. is a 43 y.o female who presents to the ER for lower back pain x several days. Pt. denies any specific injuries but notes she lifts a lot at work. Pain radiates into bilateral legs. Pt. denies numbness, tingling or weakness in legs. Denies fever, abd. pain, urinary sxs. Sxs are mild in severity. Twisting and bending makes sxs worse. Nothing makes sxs better. Pt. notes she has been taking tylenol and motrin without relief. - History of Current Complaint Chief Complaint: EDBackInjuryPain Stated Complaint: LOWER BACK PAIN PER PT Time Seen by Provider: 09/27/18 11:06 Hx Obtained From: Patient Pain Intensity: 8 Pain Scale Used: 0-10 Numeric - Allergies/Home Medications Allergies/Adverse Reactions: Allergies Allergy/AdvReac Type Severity Reaction Status Date / Time No Known Allergies Allergy Verified 09/27/18 10:43 PMH/Surg Hx/FS Hx/Imm Hx Previously Healthy: Yes Endocrine/Hematology History: Denies: Hx Anticoagulant Therapy, Hx Blood Disorders, Hx Diabetes Cardiovascular History: Reports: Hx Hypertension Denies: Hx Congestive Heart Failure Respiratory History: Denies: Hx Asthma, Hx Seasonal Allergies History: Denies: Hx Renal Disease Sensory History: Reports: Hx Contacts or Glasses Opthamlomology History: Reports: Hx Contacts or Glasses Neurological History: Denies: Other Neuro Impairments/Disorders Psychiatric History: Reports: Hx Anxiety, Hx Depression, Hx Post Traumatic Stress Disorder - Surgical History Surgery Procedure, Year, and Place: None. - Immunization History Date of Tetanus Vaccine: unnknown Date of Influenza Vaccine: NO Infectious Disease History: No Infectious Disease History: Denies: Traveled Outside the [place] in Last 30 Days - Family History Known Family History: Positive: Non-Contributory Negative: Cardiac Disease, Diabetes - Social History Occupation: Employed Full-time Lives: With Family Alcohol Use: Occasionally Alcohol Amount: pt appears intoxicated Hx Substance Use: No Substance Use Type: Reports: None Substance Use Comment - Amount & Last Used: unable to obtain Hx Tobacco Use: Yes Smoking Status (MU): Light Every Day Tobacco Smoker Review of Systems Constitutional: Negative Negative: Fever, Chills Gastrointestinal: Negative Negative: Abdominal Pain, Vomiting, Nausea Genitourinary: Negative Negative: dysuria Positive: Other - pain to low back that radiates into legs. Skin: Negative Neurological: Negative Negative: Weakness, Paresthesia, Numbness All Other Systems Reviewed And Are Negative: Yes Physical Exam Triage Information Reviewed: Yes Vital Signs On Initial Exam: Initial Vitals Temp Pulse Resp BP Pulse Ox 97.8 F 77 12 152/93 99 09/27/18 10:40 09/27/18 10:40 09/27/18 10:40 09/27/18 10:40 09/27/18 10:40 Vital Signs Reviewed: Yes Appearance: Positive: Well-Appearing - Pt. sitting on bed in NAD. Skin: Positive: Warm, Dry Head/Face: Positive: Normal Head/Face Inspection Eyes: Positive: Normal, EOMI Neck: Positive: Supple Musculoskeletal: Positive: Normal, Strength/ROM Intact, Other - 5/5 strength in bilateral LEs. positive straight leg on the right. Neurological: Positive: Normal, CN Intact II-III Psychiatric: Positive: Affect/Mood Appropriate Diagnostics - Vital Signs Vital Signs Temp Pulse Resp BP Pulse Ox 09/27/18 11:35 97.8 F 77 16 152/93 99 09/27/18 10:40 97.8 F 77 12 152/93 99 - Laboratory Lab Statement: Any lab studies that have been ordered have been reviewed, and results considered in the medical decision making process. Back Pain Course/Dx - Course Course Of Treatment: Pt. presenting with radicular back pain. Afebrile. No neuro deficits or evidence of cauda equina syndrome. Will rx a course of prednisone and flexeril. To f.u with [facility]. Will return to ER if sxs change or worsen. Pt. understands and agrees with plan. - Diagnoses Differential Diagnosis/HQI/PQRI: Positive: Arthritis, Herniated Disc, Strain, Sprain Provider Diagnoses: Lumbar strain Discharge - Sign-Out/Discharge Documenting (check all that apply): Patient Departure Patient Received Moderate/Deep Sedation with Procedure: No - Discharge Plan Condition: Good Disposition: HOME Prescriptions: Cyclobenzaprine TAB* [Flexeril 10 MG TAB*] 10 mg PO TID PRN #12 tab PRN Reason: Pain - Mild methylPREDNISolone [Medrol Dosepak 4 MG*] 0 mg PO .SEE SUDARSHAN INSTRUCTION #1 tab Patient Education Materials: Low Back Strain (ED) Forms: *Work Release Referrals: [facility] [Outside] Additional Instructions: Follow up with the [facility] if pain continues Medication as directed Avoid heavy lifting Apply warm compress Return to ER if symptoms change or worsen - Billing Disposition and Condition Condition: GOOD Disposition: Home
== END 2018-09-27 11:35 | disposition home or self-care (01) ==
LOC: ED 10:33
DX: S39.012A Strain of muscle, fascia and tendon of lower back, initial encounter (principal); X58.XXXA Exposure to other specified factors, initial encounter; Y92.9 Unspecified place or not applicable; I10 Essential (primary) hypertension; F17.200 Nicotine dependence, unspecified, uncomplicated
CPT/HCPCS: 99282

== ENCOUNTER 2018-10-24 00:08 | Emergency (ER) | payer OTHER ==
[2018-10-24] MEDS ORDERED: diPHENhydraMINE IV* 50 MG/ML 1 ml VIAL (BENADRYL) IM ONE (00:10)
[2018-10-24] MEDS ORDERED: LORazepam INJ* 2 MG/ML 1 ML VIAL IM ONE (00:10)
[2018-10-24] MEDS ORDERED: Haloperidol INJ IV/IM* 5 MG/ML AMP IM ONE ×2 (00:10→01:10)
[2018-10-24] MEDS ORDERED: LORazepam INJ* 2 MG/ML 1 ML VIAL ONE (00:11)
--- NOTE | 2018-10-24 00:46 | ED ---
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 Per the EMS/IPD, pt was brought in as a 941 with apparent intoxication and laceration to the forehead. They note that she is uncooperative , agitated, and unable to follow commands. LEVEL 5 CAVEAT. Full Hx unobtainable due to uncooperative and agitated nature of pt. - History Of Current Complaint Chief Complaint: EDSubstanceAbuse Stated Complaint: 941 PER POLICE Time Seen by Provider: 10/24/18 00:13 Hx Obtained From: EMS Hx From Patient Unobtainable Due To: Other - LEVEL 5 CAVEAT. Full Hx unobtainable due to uncooperative and agitated nature of pt. Onset/Duration of Drug/ETOH Abuse: Hours Ingestion History: Type/Name Of Drug - EtOH Overdose Characteristics: Oral Severity Initially: Moderate Severity Currently: Moderate Aggravating Factor(s): Nothing Alleviating Factor(s): Nothing Associated Signs And Symptoms: Agitated - Allergies/Home Medications Allergies/Adverse Reactions: Allergies Allergy/AdvReac Type Severity Reaction Status Date / Time No Known Allergies Allergy Verified 09/27/18 10:43 PMH/Surg Hx/FS Hx/Imm Hx Endocrine/Hematology History: Denies: Hx Anticoagulant Therapy, Hx Blood Disorders, Hx Diabetes Cardiovascular History: Reports: Hx Hypertension Denies: Hx Congestive Heart Failure Respiratory History: Denies: Hx Asthma, Hx Seasonal Allergies History: Denies: Hx Renal Disease Sensory History: Reports: Hx Contacts or Glasses Opthamlomology History: Reports: Hx Contacts or Glasses Neurological History: Denies: Other Neuro Impairments/Disorders Psychiatric History: Reports: Hx Anxiety, Hx Depression, Hx Post Traumatic Stress Disorder - Surgical History Surgery Procedure, Year, and Place: TUBAL LIGATION - Immunization History Date of Tetanus Vaccine: unnknown Date of Influenza Vaccine: NO Infectious Disease History: No Infectious Disease History: Denies: Traveled Outside the [place] in Last 30 Days - Family History Known Family History: Positive: Non-Contributory Negative: Cardiac Disease, Diabetes - Social History Alcohol Use: Occasionally Alcohol Amount: pt appears intoxicated Hx Substance Use: No Substance Use Type: Reports: None Substance Use Comment - Amount & Last Used: unable to obtain Hx Tobacco Use: Yes Smoking Status (MU): Light Every Day Tobacco Smoker Review of Systems Constitutional: Other - pos - intoxicated Skin: Other - pos - laceration to forehead All Other Systems Reviewed And Are Negative: No - Comments Additional Review of Systems Comments: LEVEL 5 CAVEAT. Full Hx unobtainable due to uncooperative and agitated nature of pt. Physical Exam Triage Information Reviewed: Yes Vital Signs On Initial Exam: Initial Vitals Temp Pulse Resp BP Pulse Ox 0 F 0 0 0/0 0 10/24/18 00:10 10/24/18 00:10 10/24/18 00:10 10/24/18 00:10 10/24/18 00:10 Vital Signs Reviewed: Yes Completion Of Physical Exam Limited Due To: Level 5 - LEVEL 5 CAVEAT. Full Hx unobtainable due to uncooperative and agitated nature of pt. Procedures - Laceration/Wound Repair 1 Location: head Length, Depth and Shape: 2 cm laceration on forehead Closure: Skin Adhesive Diagnostics - Vital Signs Vital Signs Temp Pulse Resp BP Pulse Ox 10/24/18 00:10 0 F 0 0 0/0 0 - Laboratory Result Diagrams: 10/24/18 00:57 10/24/18 00:57 Lab Statement: Any lab studies that have been ordered have been reviewed, and results considered in the medical decision making process. - CT CT Cervical Spine CT Interpretation Completed By: Radiologist Summary of CT Findings: Impression: No acute findings. ED Physician has reviewed this report. Brain CT CT Interpretation Completed By: Radiologist Summary of CT Findings: Impression: No acute intracanial abnormality. ED Physician has reviewed this report. 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 Per the EMS/IPD, pt was brought in as a 941 with apparent intoxication and laceration to the forehead. Test results normal except for Potassium 2.9, Carbon Dioxide 19, Anion Gap 13, Glucose 142, and Serum alcohol 294. A CT Cervical spine reveals no acute findings. A Brain CT reveals no acute intracranial findings. In the ED course pt was given 5 mg Haldol IM. Final Dx are alcohol intoxication and head laceration. The pt will be a sign out to Dr. Zuniga at the 0700 10/24/2018 shift change pending sobriety and disposition. - Diagnoses Provider Diagnoses: Alcohol intoxication, Laceration of head Discharge ED - Sign-Out/Discharge Documenting (check all that apply): Sign-Out Patient Signing out patient TO: Gabriel Zuniga Patient Received Moderate/Deep Sedation with Procedure: No - Discharge Plan Condition: Improved Disposition: HOME Patient Education Materials: Laceration (ED), Alcohol Intoxication (ED), Abuse of Alcohol (ED), Skin Adhesive Care (ED) Referrals: [facility] [Outside] - Billing Disposition and Condition Condition: IMPROVED Disposition: Home - Attestation Statements Document Initiated by Luis: Yes Documenting Scribe: Joey Brambila Provider For Whom Luis is Documenting (Include Credential): Lambert Plascencia MD Scribe Attestation: Joey Stout, scribed for Lambert Plascencia MD on 10/24/18 at 2102. Scribe Documentation Reviewed: Yes Provider Attestation: The documentation as recorded by the Joey marks accurately reflects the service I personally performed and the decisions made by me, Lambert Plascencia MD Status of Scribe Document: Viewed
[2018-10-24 01:04] LABS: ABS Lymphocytes 1.2 10^3/ul (1.0-4.8); ABS Monocytes 0.4 10^3/ul (0-0.8); ABS Neutrophils 6.9 10^3/ul (1.5-7.7); Eosinophil % 0.4 %; Hematocrit 44 % (35-47); Hemoglobin 14.9 g/dL (12.0-16.0); Lymphocyte % 14.5 %; Mean Corpuscular HGB Conc 34 g/dL (31-36); Mean Corpuscular Hemoglobin 31 pg (27-31); Mean Corpuscular Volume 92 fL (80-97); Mean Platelet Volume 7.7 fL (7.4-10.4); Platelet Count 277 10^3/uL (150-450); Red Blood Count 4.74 10^6 /uL (3.70-4.87); Red Cell Distribution Width 13 % (10-15); White Blood Count 8.6 10^3/uL (3.5-10.8)
[2018-10-24 01:23] LABS: ALT 15 U/L (7-52); AST 19 U/L (13-39); Albumin 4.2 g/dL (3.2-5.2); Albumin/Globulin Ratio 1.4 (1-3); Alkaline Phosphatase 61 U/L (34-104); Anion Gap 13 mmol/L (2-11); BUN/Creatinine Ratio 14.9 (8-20); Blood Urea Nitrogen 11 mg/dL (6-24); CO2 Carbon Dioxide 19 mmol/L (22-32); Calcium 8.6 mg/dL (8.6-10.3); Chloride 109 mmol/L (101-111); EGFR African American 104.1 (>60); EGFR Non-African American 86.1 (>60); Globulin 3.1 g/dL (2-4); Glucose 142 mg/dL (70-100); Potassium 2.9 mmol/L (3.5-5.0); Sodium 141 mmol/L (135-145); Total Protein 7.3 g/dL (6.4-8.9)
[2018-10-24 01:28] LABS: Alcohol 294 mg/dL (<10)
[2018-10-24 01:30] LABS: HCG Pregnancy < 0.60 mIU/mL
[2018-10-24 07:03] VITALS: BP 127/83
--- NOTE | 2018-10-24 07:10 | ED ---
Progress - Progress Note Progress Note: This patient is a 43-year old F presenting to [facility] with alcohol intoxication. This patient is a sign-out from Dr. Lambert Plascencia to Dr. Gabriel Zuniga at 0700 on 10/24/18 at shift change pending sobriety and disposition. Course/Dx - Course Course Of Treatment: This patient is a 43-year old F presenting to [facility] with alcohol intoxication. This patient is a sign-out from Dr. Lambert Plascencia to Dr. Gabriel Zuniga at 0700 on 10/24/18 at shift change pending sobriety and disposition. In the ED, patient reports feeling better. She is hemodynamically stable and safe for discharge. Strict return precautions given and she will otherwise follow up with her PCP. Patient will be discharged home with dx of alcohol intoxication and head laceration. Patient understands and agrees with this plan - Diagnoses Provider Diagnoses: Alcohol intoxication, Laceration of head Discharge ED - Sign-Out/Discharge Documenting (check all that apply): Patient Departure - Discharge Patient Received Moderate/Deep Sedation with Procedure: No - Discharge Plan Condition: Improved Disposition: HOME Patient Education Materials: Laceration (ED), Alcohol Intoxication (ED), Abuse of Alcohol (ED), Skin Adhesive Care (ED) Referrals: [facility] [Outside] - Attestation Statements Document Initiated by Scribe: Yes Documenting Scribe: Siddharth Simmons Provider For Whom Luis is Documenting (Include Credential): Gabriel Zuniga MD Scribe Attestation: Siddharth Stout, scribed for Gabriel Zuniga MD on 10/24/18 at 0716. Status of Scribe Document: Ready
[2018-10-24] MEDS ORDERED: Potassium Chlor TAB* 20 MEQ TAB.ER PO ONE (07:28)
[2018-10-24] MEDS ORDERED: KCL 20 MEQ/100 ML IVPREMIX* 20 MEQ/100 ML BAG IV ONE (07:28)
--- NOTE | 2018-10-24 09:14 | ED ---
Progress - Progress Note Progress Note: This patient is a 43-year old F presenting to [facility] with alcohol intoxication. This patient is a sign-out from Dr. Lambert Plascencia to Dr. Gabriel Zuniga at 0700 on 10/24/18 at shift change pending sobriety and disposition. I thought this patient was a sign-out from Dr. Plascencia. However, Dr. Plascencia ordered the patient for discharge and was subsequently discharged by the nurse. I did not get to see the patient. Course/Dx - Course Course Of Treatment: This patient is a 43-year old F presenting to [facility] with alcohol intoxication. I thought this patient was a sign-out from Dr. Plascencia. However, Dr. Plascencia ordered the patient for discharge and was subsequently discharged by the nurse before I had the chance to see patient and so I was not involved in the care of this patient - Diagnoses Provider Diagnoses: Alcohol intoxication, Laceration of head Discharge ED - Sign-Out/Discharge Documenting (check all that apply): Patient Departure - Discharge Patient Received Moderate/Deep Sedation with Procedure: No - Discharge Plan Condition: Improved Disposition: HOME Patient Education Materials: Laceration (ED), Alcohol Intoxication (ED), Abuse of Alcohol (ED), Skin Adhesive Care (ED) Referrals: [facility] [Outside] - Billing Disposition and Condition Condition: IMPROVED Disposition: Home - Attestation Statements Document Initiated by Luis: Yes Documenting Scribe: Siddharth Simmons Provider For Whom Luis is Documenting (Include Credential): Gabriel Zuniga MD Scribe Attestation: I, Siddharth Simmons, scribed for Gabriel Zuniga MD on 10/24/18 at 1141. Scribe Documentation Reviewed: Yes Provider Attestation: The documentation as recorded by the Siddharth marks accurately reflects the service I personally performed and the decisions made by me, Gabriel Zuniga MD Status of Scribe Document: Viewed
== END 2018-10-24 07:30 | disposition home or self-care (01) ==
LOC: ED 00:08
DX: F10.129 Alcohol abuse with intoxication, unspecified (principal); S01.81XA Laceration without foreign body of other part of head, initial encounter; X58.XXXA Exposure to other specified factors, initial encounter; Y92.9 Unspecified place or not applicable; I10 Essential (primary) hypertension; F41.9 Anxiety disorder, unspecified; F43.10 Post-traumatic stress disorder, unspecified; F32.9 Major depressive disorder, single episode, unspecified; F17.210 Nicotine dependence, cigarettes, uncomplicated
CPT/HCPCS: 36415; 70450; 72125; 80053; 80320; 84702; 85025; 96372; 99285; G0480; J1630; J2060

== ENCOUNTER 2018-12-17 17:44 | Emergency (ER) | payer OTHER ==
[2018-12-17] MEDS ORDERED: oxyCODONE/Acetamin 5/325 MG* TAB PO ONE (18:53)
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
[2018-12-17 21:34] VITALS: BP 154/101
== END 2018-12-17 21:30 | disposition home or self-care (01) ==
LOC: ED 17:44
DX: S02.31XA Fracture of orbital floor, right side, initial encounter for closed fracture (principal); Y04.2XXA Assault by strike against or bumped into by another person, initial encounter; Y92.9 Unspecified place or not applicable; I10 Essential (primary) hypertension; F41.9 Anxiety disorder, unspecified; F43.10 Post-traumatic stress disorder, unspecified; F17.200 Nicotine dependence, unspecified, uncomplicated; Z98.51 Tubal ligation status
CPT/HCPCS: 70486; 99282; A9270-GY

== ENCOUNTER 2019-05-19 09:35 | Emergency (ER) | payer SELFPAY ==
--- NOTE | 2019-05-19 09:49 | ED ---
Back Pain - HPI Summary HPI Summary: patient is a 43-year-old female who presents emergency department for low back pain times a week and a half. Patient states she is a history of disc. Patient states she's been doing a lot of heavy lifting at work and pain started about a week and a half ago after lifting. Pain is mostly noted to left low back and radiates into left leg with intermittent tingling. Denies leg numbness or weakness, bowel or bladder incontinence or retention, fever, abdominal pain, urinary symptoms. Patient has been taking ibuprofen and applying heat with mild improvement. Symptoms are mild in severity. They positions and twisting makes symptoms worse. - History of Current Complaint Chief Complaint: EDBackInjuryPain Stated Complaint: BACK PAIN PER PT Time Seen by Provider: 05/19/19 09:48 Hx Obtained From: Patient Pain Intensity: 8 - Allergies/Home Medications Allergies/Adverse Reactions: Allergies Allergy/AdvReac Type Severity Reaction Status Date / Time No Known Allergies Allergy Verified 05/19/19 09:42 Home Medications: Home Medications Ibuprofen TAB* [Motrin TAB* 600 MG] 600 mg PO Q6H PRN #15 tab 08/24/18 [Rx Confirmed 05/19/19] Naproxen [Naproxen 500 mg tab] 500 mg PO BID #20 tablet. 05/19/19 [Rx] PMH/Surg Hx/FS Hx/Imm Hx Previously Healthy: Yes Endocrine/Hematology History: Denies: Hx Anticoagulant Therapy, Hx Blood Disorders, Hx Diabetes Cardiovascular History: Reports: Hx Hypertension Denies: Hx Congestive Heart Failure Respiratory History: Denies: Hx Asthma, Hx Seasonal Allergies History: Denies: Hx Renal Disease Sensory History: Reports: Hx Contacts or Glasses Opthamlomology History: Reports: Hx Contacts or Glasses Neurological History: Denies: Other Neuro Impairments/Disorders Psychiatric History: Reports: Hx Anxiety, Hx Depression, Hx Post Traumatic Stress Disorder - Surgical History Surgery Procedure, Year, and Place: TUBAL LIGATION - Immunization History Date of Tetanus Vaccine: unnknown Date of Influenza Vaccine: NO Infectious Disease History: No Infectious Disease History: Denies: Traveled Outside the [place] in Last 30 Days - Family History Known Family History: Positive: Non-Contributory Negative: Cardiac Disease, Diabetes - Social History Occupation: Unemployed Lives: With Family Alcohol Use: Weekly Alcohol Amount: pt appears intoxicated Hx Substance Use: No Substance Use Type: Reports: None Substance Use Comment - Amount & Last Used: unable to obtain Hx Tobacco Use: Yes Smoking Status (MU): Heavy Every Day Tobacco Smoker Review of Systems Constitutional: Negative Negative: Fever, Chills Respiratory: Negative Gastrointestinal: Negative Negative: Abdominal Pain, Vomiting, Nausea Genitourinary: Negative Negative: dysuria Positive: Other - low back pain low back pain Positive: Paresthesia. Negative: Weakness, Numbness All Other Systems Reviewed And Are Negative: Yes Physical Exam Triage Information Reviewed: Yes Vital Signs On Initial Exam: Initial Vitals Temp Pulse Resp BP Pulse Ox 99.2 F 66 19 154/92 100 05/19/19 09:40 05/19/19 09:40 05/19/19 09:40 05/19/19 09:40 05/19/19 09:40 Vital Signs Reviewed: Yes Appearance: Positive: Well-Appearing - Patient sitting on side of bed in no acute distress. Moves around room easily. Skin: Positive: Warm, Dry Head/Face: Positive: Normal Head/Face Inspection Eyes: Positive: Normal, EOMI Neck: Positive: Supple Musculoskeletal: Positive: Other - Tenderness along low lumbar paraspinal region. 5 out of 5 strength in bilateral lower extremities flexion and dorsiflexion. Positive straight leg on the left at greater than 45. Neurological: Positive: Normal, CN Intact II-III Psychiatric: Positive: Affect/Mood Appropriate Procedures - Sedation Patient Received Moderate/Deep Sedation with Procedure: No Diagnostics - Vital Signs Vital Signs Temp Pulse Resp BP Pulse Ox 05/19/19 09:40 99.2 F 66 19 154/92 100 - Laboratory Lab Statement: Any lab studies that have been ordered have been reviewed, and results considered in the medical decision making process. Back Pain Course/Dx - Course Course Of Treatment: Patient with low back pain after heavy lifting. No neurological deficits or evidence of cauda equina syndrome. Afebrile. Patient given dose of Toradol for pain in the ER and prescribed naproxen. To discontinue ibuprofen. Warm compresses. Avoid heavy lifting. Work excuse given. [facility] for close follow-up and possible physical therapy referral. She'll return for fever, leg weakness/numbness, bowel or bladder incontinence or retention. Patient understands and agrees with plan. - Diagnoses Differential Diagnosis/HQI/PQRI: Positive: Arthritis, Herniated Disc, Strain, Sprain Provider Diagnoses: Low back pain Discharge ED - Sign-Out/Discharge Documenting (check all that apply): Patient Departure - Discharge Plan Condition: Good Disposition: HOME Prescriptions: Naproxen [Naproxen 500 mg tab] 500 mg PO BID #20 tablet. Patient Education Materials: Low Back Strain (ED) Forms: *Work Release Referrals: [facility] [Outside] Additional Instructions: Call the [facility] today to schedule a follow up appointment Take naproxen for pain as directed Stop taking ibuprofen Apply warm compresses Avoid heavy lifting Return to ER for increased pain, fever, leg numbness/weakness, bowel or bladder dysfunction or if concerned - Billing Disposition and Condition Condition: GOOD Disposition: Home
[2019-05-19] MEDS ORDERED: Ketorolac *IM* INJ* 60 MG/2 ML VIAL IM ONE (10:09)
[2019-05-19 10:35] VITALS: BP 148/92
== END 2019-05-19 10:35 | disposition home or self-care (01) ==
LOC: ED 09:35
DX: M54.5 Low back pain (principal); F17.210 Nicotine dependence, cigarettes, uncomplicated; R20.2 Paresthesia of skin; I10 Essential (primary) hypertension; Z98.51 Tubal ligation status
CPT/HCPCS: 96372; 99282; J1885